=== PATIENT | female | born 1985 | race Caucasian/White ===

== ENCOUNTER 2016-08-22 18:48 | Emergency (ER) | payer OTHER ==
[2016-08-22 18:55] VITALS: BP 126/86; PULSE 86; RESP 20; TEMP 98.1
--- NOTE | 2016-08-22 19:37 | ED ---
ENT HPI - General Chief complaint: Dental/Oral Stated complaint: Dental/Jaw Pain Time Seen by Provider: 08/22/16 19:21 Source: patient, RN notes reviewed Mode of arrival: ambulatory Limitations: no limitations - History of Present Illness Initial comments: Patient is a 31-year-old female presents to the emergency room for evaluation of dental pain. Patient states that she had her tooth pulled on Sunday. Patient states that she began having worsening pain over the past few days. Patient states she has been taking ibuprofen with no relief of symptoms. Patient states the pain radiates from the tooth through her upper jaw. Patient denies swelling. Patient denies fevers or chills. Patient states she had the tooth removed because she had dental abscess. Patient states she was never placed on antibiotics. Patient denies any other complaints at this time. Patient denies throat pain or neck pain. Patient denies headache or dizziness. - Related Data Home Medications Medication Instructions Recorded Confirmed Ibuprofen [Motrin] 800 mg PO Q6HR PRN 08/22/16 08/22/16 Phenyleph/Pramoxin/Glycr/W.pet 1 applic RECTAL DAILY PRN 08/22/16 08/22/16 [Preparation H Cream] Previous Rx's Medication Instructions Recorded Penicillin V Potassium [Pen Vee K] 500 mg PO QID #28 tab 08/22/16 traMADol HCl [Ultram] 50 mg PO Q4H PRN #15 tab 08/22/16 Allergies Allergy/AdvReac Type Severity Reaction Status Date / Time kiwi Allergy Rash/Hives Verified 08/22/16 19:27 levofloxacin [From Levaquin] Allergy HEADACHE Verified 08/22/16 19:27 Opioids - Morphine Analogues Allergy Rash/Hives Verified 08/22/16 19:27 strawberry Allergy Rash/Hives Verified 08/22/16 19:27 watermelon Allergy Rash/Hives Verified 08/22/16 19:27 Review of Systems ROS Statement: Those systems with pertinent positive or pertinent negative responses have been documented in the HPI. ROS Other: All systems not noted in ROS Statement are negative. Past Medical History Past Medical History: No Reported History History of Any Multi-Drug Resistant Organisms: None Reported Past Surgical History: Section Past Psychological History: No Psychological Hx Reported Smoking Status: Current every day smoker Past Alcohol Use History: None Reported Past Drug Use History: Marijuana General Exam - General Exam Comments Initial Comments: Sitting on exam chair, no acute distress. Limitations: no limitations General appearance: alert, in no apparent distress Head exam: Present: atraumatic, normocephalic, normal inspection Eye exam: Present: normal appearance Expanded Teeth exam: Present: other (Dry socket noted where tooth #11 was extracted) Neck exam: Present: normal inspection. Absent: tenderness Extremities exam: Present: normal inspection Back exam: Present: normal inspection Neurological exam: Present: alert, oriented X3, CN II-XII intact, normal gait Psychiatric exam: Present: normal affect, normal mood Skin exam: Present: warm, dry, intact, normal color. Absent: rash Course Vital Signs 08/22/16 18:52 Temperature 98.1 F Pulse Rate 86 Respiratory 20 Rate Blood Pressure 126/86 O2 Sat by Pulse 98 Oximetry Medical Decision Making - Medical Decision Making Patient is a 31-year-old female presents emergency room for evaluation of dental pain. Patient does appear to have dry socket at the area with tooth was extracted. Patient placed on prophylactic antibiotics. Patient states she is ALLERGIC to opioids. Patient states she breaks out in hives rash. Patient states she's never tried Ultram before, Ultram is a synthetic. Patient given Ultram in the emergency room and evaluated. Patient had no reaction to Ultram and will be sent home with this as needed for pain. Advised patient to follow- up with her dentist. Patient states she understands everything that was discussed with her. Return parameters discussed. Case discussed with Dr. Ratliff. Disposition Clinical Impression: Dry tooth socket Disposition: HOME SELF-CARE Condition: Good Instructions: Dry Socket (ED) Additional Instructions: Please follow up with a dentist. If you do not have a dentist, you may contact [facility]. Phone number is [phone] for existing clients. For new clients you may call [phone]. Another option is you have is the [employer] [facility]. Phone number is [phone]. Medications as directed. Saltwater gargles. Cold fluids can sometimes help with pain as well. Return to the Emergency Room for any worsening or changing symptoms. Use cold compresses to the outside of the face. Prescriptions: Penicillin V Potassium [Pen Vee K] 500 mg PO QID #28 tab traMADol HCl [Ultram] 50 mg PO Q4H PRN #15 tab PRN Reason: Pain Referrals: José Miguel Cook MD [Primary Care Provider] - 1-2 days Time of Disposition: 19:35
[2016-08-22] MEDS ORDERED: traMADol 50 MG TAB PO STA (19:38)
== END 2016-08-22 20:06 | disposition home or self-care (01) ==
LOC: EC 18:48
DX: M27.3 Alveolitis of jaws (principal); F17.200 Nicotine dependence, unspecified, uncomplicated; Z88.1 Allergy status to other antibiotic agents; Z88.5 Allergy status to narcotic agent; Z91.018 Allergy to other foods
CPT/HCPCS: 99282

== ENCOUNTER → 2017-01-31 | Outpatient (CLI) | payer OTHER ==
[2017-01-31 09:46] LABS: Basophils # (A) 0.1 k/uL (0-0.2); Basophils % (A) 0 %; CH 28.5; CHCM 30.4; Eosinophils # (A) 0.6 k/uL (0-0.7); Eosinophils % (A) 5 %; HCT 39.7 % (34.0-46.0); HDW 2.82; HGB 12.5 gm/dL (11.4-16.0); Hypochromasia Marked; Luc # (Auto) 0.14; Luc % (Auto) 1; Lymphocytes # (A) 2.2 k/uL (1.0-4.8); Lymphocytes % (A) 16 %; MCH 29.6 pg (25.0-35.0); MCHC 31.5 g/dL (31.0-37.0); MCV 93.9 fL (80.0-100.0); Mean Platelet Volume 7.2; Monocytes # (A) 0.6 k/uL (0-1.0); Monocytes % (A) 5 %; Neutrophils # (A) 9.9 k/uL (1.3-7.7); Neutrophils % (A) 73 %; RBC 4.23 m/uL (3.80-5.40); RDW 14.2 % (11.5-15.5); WBC 13.5 k/uL (3.8-10.6); WBC (Perox) 13.32
--- NOTE | 2017-01-31 13:28 | WWHP ---
[facility] - HISTORY AND PHYSICAL DATE OF SERVICE: 01/31/2017 CHIEF COMPLAINT: The patient is here for her routine gynecologic exam. HPI: This is a 31-year-old, G5, P2-0-3-2 with an LMP of 01/13/17. She is status post tubal ligation. She states her last pelvic exam was in 2014. She states her periods have become more problematic. Over the past 2 years, the periods have gotten closer. They tend to be closer to every 3 weeks. She has had times where she has had 3 periods in one month. The periods tend to last 4 to 7 days and they can have heavy flow. She has had to change her tampon frequently on the heavy days and sometimes soaks through the tampon in 2 hours or so. She is mainly concerned with problems such as cervical cancer since her mother had cervical cancer. PAST MEDICAL HISTORY: Depression and posttraumatic stress disorder. MEDICATIONS: Ibuprofen p.r.n. ALLERGIES: Allergies to OPIATES, which causes skin rash. She also has certain FOOD ALLERGIES. PAST SURGICAL HISTORY: section x2. She did have a tubal ligation with her second . Also a hemorrhoidectomy and fissure correction in the past. PAST OB HISTORY: section x2. She did have gestational diabetes with at least one of her pregnancies. She had 3 spontaneous abortions. 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 She has no other history of STDs. She has had menstrual problems as above. SOCIAL HISTORY: She smokes 1 pack of cigarettes per day and denies alcohol use. She does use marijuana. She denies any other drug use. She was previously in the [employer]. 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 She has been with her boyfriend for 8 years and lives with him. FAMILY HISTORY: Mother had cervical, breast and lung cancer. Her grandfather had skin cancer. Mother also had diabetes. REVIEW OF SYSTEMS: She thinks she has lost about 10 to 20 pounds over the last year and this has been intentional with dieting. She denies respiratory or cardiac problems. GI: She does have some digestive issues when eating dairy products and this can include loose stools. She states this is much better when she avoids dairy products. PHYSICAL EXAM: Blood pressure 113/60, height 5 feet 2 inches, weight 170 pounds. Temperature 96.8, pulse 72. This is a well-developed, well-nourished, white female, who is alert and oriented x3, in no acute distress HEENT is within normal limits. NECK: Supple without mass or thyromegaly. CHEST AND LUNGS: Clear to auscultation. HEART: Regular rate and rhythm. Breasts are without mass or discharge. Axillary exam is negative for adenopathy. BACK: Negative for CVA tenderness. ABDOMEN: Soft, nontender, without palpable masses. PELVIC EXAM: Normal external genitalia. Cervix and vagina revealed a small amount of old menstrual type blood in the cervical os. Upon wiping this away, the cervix appears normal without lesions. There is no cervical motion tenderness. There is no unusual discharge. The uterus is mid position, approximately 8 to 10-week size and is nontender. There are no palpable adnexal masses or tenderness. Rectal exam does reveal some internal hemorrhoids, which are nontender. There are no other rectal masses. EXTREMITIES: Nontender. IMPRESSION: 1. A 31-year-old female who is status post tubal ligation, who is experiencing menometrorrhagia. 2. Uterine enlargement, approximately 8 to 10 week size. PLAN: 1. Pap smear was performed. 2. Self breast examination was discussed. 3. TSH and CBC will be drawn today. 4. The patient will keep a menstrual calendar. 5. Trial of meclofenamate sodium 100 mg t.i.d. p.r.n. for heavy menstrual flow up to 6 days per cycle. 6. Pelvic ultrasound will be scheduled to further evaluate her uterine enlargement. 7. The patient states that the periods being more frequent is not a big problem for her, but she is mostly concerned about issues such as cervical cancer. We have discussed various options for her more frequent bleeding. We have discussed hormonal manipulations such as control pills. We have also has discussed possible surgical options. If she is having significant menstrual problems, she will return with her menstrual calendar for re-evaluation and we can again look at different options. 8. She will also return in one year and p.r.n. MMODL / IJN: [id number] /
== END | disposition home or self-care (01) ==
LOC: WWCWWP 07:51
PROVIDERS: ATTEND Obstetrics & Gynecology
DX: N92.1 Excessive and frequent menstruation with irregular cycle (principal)
CPT/HCPCS: 36415; 84443; 85025

== ENCOUNTER → 2017-05-15 | Outpatient (CLI) | payer OTHER ==
[2017-05-15 16:48] LABS: HCT 38.9 % (34.0-46.0); HGB 11.9 gm/dL (11.4-16.0); Hypochromasia Slight; MCH 28.3 pg (25.0-35.0); MCHC 30.6 g/dL (31.0-37.0); MCV 92.2 fL (80.0-100.0); Mean Platelet Volume 6.9; Platelet Count 482 k/uL (150-450); RBC 4.22 m/uL (3.80-5.40); RDW 14.8 % (11.5-15.5); WBC 14.6 k/uL (3.8-10.6)
[2017-05-15 18:53] LABS: Eosinophils # (M) 0.15 k/uL (0-0.7); Monocytes # (M) 1.02 k/uL (0-1.0); Neutrophils # (M) 11.53 k/uL (1.3-7.7); Neutrophils % (M) 79 %; Nucleated Red Blood Cells 0 /100 WBC (0-0); Polychromasia Present; Total Cells Counted 100
--- NOTE | 2017-05-16 07:14 | US ---
EXAMINATION TYPE: US pelvic complete DATE OF EXAM: 05/15/2017 COMPARISON: NONE CLINICAL HISTORY: N92.1 Excessive/frequent menstruation w/irregular. felt enlarged uterus on pelvi c exam TECHNIQUE: Transabdominal (TA) Date of LMP: 05/09/2017 EXAM MEASUREMENTS: Uterus: 11.7 x 7.5 x 9.2 cm Endometrial Stripe: not identified cm Right Ovary: 3.4 x 2.2 x 2.3 cm Left Ovary: 2.8 x 2.6 x 2.6 cm 1. Uterus: Anteverted enlarged and bulky, at least one large fibroid seen measuring 6.2 x 4.7 x 5. 9 cm fundally. 2. Endometrium: not identified 3. Right Ovary: wnl 4. Left Ovary: wn. 5. Bilateral Adnexa: wnl 6. Posterior cul-de-sac: no free fluid Heterogeneous enlarged uterus is confirmed as suspected on exam. There is at least one large slightly hypoechoic ill-defined fibroid measuring 6.2 x 4.7 x 6.0 cm in the fundus. Endometrial stripe is not seen with certainty. No free fluid is seen in pelvic cul-de-sac. Both ovaries are identified. No suspicious extraovarian adnexal masses are seen. IMPRESSION: Heterogeneous bulky fibroid uterus. Pelvic MRI can be performed to further characterize u nderlying fibroids if desired.
== END | disposition home or self-care (01) ==
LOC: RADUSWWP 16:06
PROVIDERS: ATTEND Obstetrics & Gynecology
DX: D25.9 Leiomyoma of uterus, unspecified (principal); N92.1 Excessive and frequent menstruation with irregular cycle; D50.9 Iron deficiency anemia, unspecified
CPT/HCPCS: 76856; 85025

== ENCOUNTER → 2017-10-16 | Outpatient (CLI) | payer OTHER ==
[2017-10-16 10:22] LABS: Anisocytosis Slight; Basophils % (A) 1 %; Eosinophils # (A) 0.4 k/uL (0-0.7); Eosinophils % (A) 4 %; HCT 36.1 % (34.0-46.0); HGB 11.2 gm/dL (11.4-16.0); Hypochromasia Moderate; Lymphocytes # (A) 1.4 k/uL (1.0-4.8); Lymphocytes % (A) 16 %; MCH 27.7 pg (25.0-35.0); MCHC 31.1 g/dL (31.0-37.0); MCV 89.2 fL (80.0-100.0); Mean Platelet Volume 7.2; Monocytes # (A) 0.4 k/uL (0-1.0); Monocytes % (A) 5 %; Neutrophils # (A) 6.3 k/uL (1.3-7.7); Neutrophils % (A) 73 %; Platelet Count 507 k/uL (150-450); RBC 4.05 m/uL (3.80-5.40); RDW 16.5 % (11.5-15.5); WBC 8.6 k/uL (3.8-10.6)
[2017-10-16 10:31] LABS: Anion Gap 9 mmol/L; Blood Urea Nitrogen 9 mg/dL (7-17); Calcium 9.7 mg/dL (8.4-10.2); Carbon Dioxide 26 mmol/L (22-30); Chloride 106 mmol/L (98-107); Glucose 88 mg/dL (74-99); Potassium 4.3 mmol/L (3.5-5.1); Sodium 141 mmol/L (137-145)
== END | disposition home or self-care (01) ==
LOC: LABPAT 08:58
PROVIDERS: ATTEND Obstetrics & Gynecology
DX: Z01.812 Encounter for preprocedural laboratory examination (principal)
CPT/HCPCS: 36415; 80048; 85025

== ENCOUNTER 2017-10-18 07:56 | Inpatient (IN) | payer OTHER ==
[2017-10-09 13:23] VITALS: BMI 31.6
--- NOTE | 2017-10-17 16:27 | P.HPOB ---
History of Present Illness H&P Date: 10/17/17 Chief Complaint: Menorrhagia and fibroid uterus Kamilah is a 32-year-old female who has a 6 cm fibroid and a grossly enlarged uterus. She is had heavy vaginal bleeding for a number of months and it causes her daily pain. She also complains of constipation due to pressure sensation over her rectum. She is therefore scheduled for a robotic-assisted laparoscopic hysterectomy possible DEVON possible BSO. Risks/benefits/ alternatives to this procedure were discussed with the patient in detail and included but were not limited to bleeding, infection, damage to bladder or bowel , ureteral injuries, vessel injuries, or nerve damage. Past Medical History Past Medical History: No Reported History Additional Past Medical History / Comment(s): SOB,enlarged uterus,heavy menses with increase pain, hx anemia,gestational diabetes History of Any Multi-Drug Resistant Organisms: None Reported Past Surgical History: Section, Tubal Ligation Additional Past Surgical History / Comment(s): c sect x2,hemorrhoidectomy, fissure repair Past Anesthesia/Blood Transfusion Reactions: Motion Sickness Additional Past Anesthesia/Blood Transfusion Reaction / Comment(s): no hx blood transfusion Smoking Status: Current every day smoker - Past Family History Mother Family Medical History: Cancer Additional Family Medical History / Comment(s): breast,lung,cervical Medications and Allergies Home Medications Medication Instructions Recorded Confirmed Type Naproxen Sodium 660 mg PO BID PRN 10/09/17 10/09/17 History Allergies Allergy/AdvReac Type Severity Reaction Status Date / Time kiwi Allergy Rash/Hives Verified 10/09/17 13:09 levofloxacin [From Levaquin] Allergy HEADACHE Verified 10/09/17 13:09 Opioids - Morphine Analogues Allergy Rash/Hives Verified 10/09/17 13:09 strawberry Allergy Rash/Hives Verified 10/09/17 13:09 watermelon Allergy Rash/Hives Verified 10/09/17 13:09 Exam Osteopathic Statement: *. No significant issues noted on an osteopathic structural exam other than those noted in the History and Physical/Consult. - OBG Physical Exam Breast: both: normal (no masses) Abdomen: bowel sounds normal, no diffuse tenderness, no bruit present, no guarding noted, no hepatomegaly, no splenomegaly, no mass Vulva: both: normal Vagina: normal moisture, no discharge Cervix: no lesion, no discharge Uterus: normal size, enlarged, normal contour, nodular Adnexa: both: normal Anus/Rectum: normal perianal skin, no rectal mass, no hemorrhoids, heme negative
[~2017-10-18 07:56] MED LIST: DEXAMETHASONE SOD PHOSPHATE 10 MG/ML 1 ML VIAL IV ONE; LIDOCAINE 1% 20 ML VIAL (10MG/ML) FOR IV START INTRADERMA PRN; MIDAZOLAM 2 MG/2 ML VIAL IV PRN; SCOPOLAMINE 1.5MG/72HR PATCH TRANSDERM ONE; ceFAZolin IN SWFI 2 GM/20 ML SYRINGE IVP ONE
[2017-10-18] MEDS ORDERED: ONDANSETRON 4 MG/2 ML VIAL IVP ONE (08:38)
[2017-10-18] MEDS: LACTATED RINGERS 1,000 ML IV SCH ×3 (08:38→16:51)
[2017-10-18] MEDS ORDERED: PROPOFOL 10 MG/ML 20 ML VIAL IV ONE (10:21)
[2017-10-18] MEDS ORDERED: ROCURONIUM BROMIDE 10 MG/ML 10 ML VIAL IV ONE (10:21)
[2017-10-18] MEDS ORDERED: GLYCOPYRROLATE 0.2 MG/ML 2 ML VIAL ONE (10:21)
[2017-10-18] MEDS ORDERED: LIDOCAINE 1% INJ 10MG/ML (20 ML MDV) ONE (10:21)
[2017-10-18] MEDS ORDERED: fentaNYL (PF) 50 MCG/ML 2 ML AMP ONE (10:21)
[2017-10-18] MEDS ORDERED: KETOROLAC 30 MG/ML 1 ML VIAL ONE (10:21)
[2017-10-18] MEDS ORDERED: NEOSTIGMINE 1 MG/ML 10 ML VIAL ONE (10:21)
[2017-10-18] MEDS ORDERED: diphenhydrAMINE 50 MG/ML 1 ML VIAL ONE (10:21)
[2017-10-18] MEDS ORDERED: MIDAZOLAM 2 MG/2 ML VIAL ONE (10:21)
[2017-10-18] MEDS ORDERED: SUCCINYLCHOLINE CHLORIDE 100 MG/5 ML SYR IV ONE (10:21)
[2017-10-18] MEDS ORDERED: BUPIVACAINE (PF) 0.5% 30 ML VIAL SQ ONE ×2 (10:53)
[2017-10-18] MEDS ORDERED: SIMETHICONE 80 MG CHEWABLE PO PRN (12:31)
[2017-10-18] MEDS ORDERED: diphenhydrAMINE 50 MG/ML 1 ML VIAL IVP PRN (12:31)
[2017-10-18] MEDS ORDERED: KETOROLAC 30 MG/ML 1 ML VIAL IVP PRN (12:31)
[2017-10-18] MEDS ORDERED: ONDANSETRON 4 MG/2 ML VIAL IVP PRN (12:31)
[2017-10-18] MEDS ORDERED: NALOXONE 0.4 MG/ML 1 ML VIAL IV PRN (12:33)
[2017-10-18] MEDS ORDERED: LACTATED RINGERS 1,000 ML IV ONE (12:37)
[2017-10-18] MEDS: fentaNYL (PF) 50 MCG/ML 2 ML AMP IV PRN ×2 (12:49→12:54)
[2017-10-18] MEDS: MEPERIDINE 50 MG/ML SYRINGE IVP ONE ×2 (13:15→13:38)
--- NOTE | 2017-10-18 13:16 | P.OP ---
Date of Procedure: 10/18/17 Preoperative Diagnosis: Menorrhagia and fibroid uterus Postoperative Diagnosis: Same with adhesions as well as vulvar lesion on the left side Procedure(s) Performed: Failed robotic-assisted laparoscopic hysterectomy conversion to total abdominal hysterectomy with lysis of adhesions and vulvar biopsy Anesthesia: KADE Surgeon: Jaydon Middleton Keyseating Machine Set Up Operator #1: Ruby Fitch Estimated Blood Loss (ml): 75 Pathology: other (Uterus and cervix and vulvar biopsy) Condition: stable Disposition: floor Operative Findings: Grossly enlarged fibrin uterus with adhesions of the omentum to to the abdominal anterior abdominal wall as well as adhesions along the lateral portion of the uterus essentially attachment to the pelvic sidewall precluding any ability for robotic surgery Description of Procedure: Patient was taken to the operating suite where a general anesthetic was found be adequate. She was prepped and draped in the normal sterile fashion and placed in dorsal lithotomy position. Initially a speculum was inserted into the vagina into lip cervix identified and grasped with an Allis clamp and 2 sutures were placed at 3-9/10 clock position. Uterus is then sounded to 9 cm and cup size was measured 2.5 cm initially a Maya minute later was inserted however Maya manipulator cable broke therefore was exchanged for a MetaPack care. The camera was inserted and once that was completed maximal Ascent of the uterus was marked on her abdomen and a Eduardo catheter was placed. Gloves were then changed and attention was turned to the abdominal portion of the procedure. Approximately 5 cm above the umbilicus quarter percent Marcaine was injected and a 5 mm skin incision was made. Through this incision a 5 mm port and sleeve were inserted under direct visualization with an optical trocar and sleeve. Once peritoneal placement was assured gas left fully slick abdomen and patient's placement steep Trendelenburg position. Observations immediately were noted to have large amount of omental adhesions across the anterior abdominal wall. Once this was determined 2 lateral ports were placed through 8 mm da Darius sleeves under direct visualization. Fourth port and sleeve was then inserted between the left lateral and the medial port through a 1 cm incision for the him assistant port. At this point we did bluntly dissected the omental adhesions off of the anterior abdominal wall and it was noted that grossly apparent there was probably some type of hernia with the omentum into the fascial layer. Once this was concluded in the we're able to fully visualized pelvis uterus is noted to extend essentially all the way across the pelvis and there was limited lateral movement. Initially we did docked the robot in place a scissor and the one arm and a [place] grasper in the 2 arm and I did few things to the robot freeing the left ovary from the utero-ovarian ligament however such limited movement of the uterus was able to be obtained that it was not would be safe to move forward with the procedure due to how far lateral the uterus was in the pelvis essentially up against the pelvic sidewall with adhesions across that tissue and rather than risk ureteral injury termination of the robot procedure was done. Robot was undocked and instruments removed 4-0 Vicryl was used to close incision subcuticularly. Once this incision was made patient was flattened and a Pfannenstiel skin incision was made through her old scar. This incision was carried through to underlying layer of the fascia and the fascia was then nicked in the midline. This opening was then extended laterally with Petit scissors and the superior and inferior aspect of this incision were then tented up and bluntly and sharply dissected off the rectus muscles there was a small midline hernia of omentum all the way through the fascia which was believed which was visualized with the lap scope. Once this was accomplished the peritoneum was entered and extended superiorly and inferiorly with good visualization of both bowel bladder. Self-retaining retractor was then inserted and bowel was then packed out of the operative field. Uterus was then elevated and on the right side a on Paula clamp was used to clamp the adnexa and on the left side a towel Clip was placed. Initially on the left side Nate clamp was used to clamp the round ligament tubal complex tissues clamped cut and tied moving inferiorly the uterine tissues adjacent to this were clamped cut and tied once this was accomplished blunt and sharp dissection of the bladder which was adherent through more adhesions to the anterior uterine wall were done to fully develop the bladder flap area once this was accomplished uterine vast suture was clamped and cut and tied bilaterally. Moving inferiorly through the cardinal and uterosacral ligaments in a stepwise fashion tissues clamped cut and tied until entry into the vaginal cuff was done. Once this was accomplished uterus was removed and sent to pathology for evaluation. Course tissues were placed in the vaginal cuff and the cuff was closed in interrupted fashion with 2 figure -of-eight sutures. Once excellent hemostasis was obtained corner stitches were cut and the pelvis was irrigated. Seeing no bleeding, instruments were removed and bowel packing was removed. Peritoneal layer was identified and grasped with hemostats and reapproximated close in the previous hernia off and then once the peritoneum was closed the fascial layer was closed with 0 Vicryl suture in a running fashion. One layer of 3-0 Vicryl was placed in the deep subcuticular tissues to reapproximate the skin and close the space. Skin was then closed with sahil. Sponge, lap, needle counts were all correct 2. Patient was then taken to the recovery room in stable and satisfactory condition.
[2017-10-18] MEDS: HYDROmorphone 1 MG/ML 1 ML SYRINGE IVP ONE ×2 (13:22→13:42)
[2017-10-18] MEDS ORDERED: diphenhydrAMINE 50 MG/ML 1 ML VIAL IVP ONE (13:50)
[2017-10-18] MEDS: HYDROmorphone PCA 5 MG/25 ML SYRINGE IV PRN ×2 (15:11→23:29)
[2017-10-18] MEDS: HEPARIN SODIUM,PORCINE 5,000 UNIT/ML 1 ML VIAL SQ SCH (16:48)
[2017-10-18] MEDS: ceFAZolin 1,000 MG in DEXTROSE/WATER 1 50ML.BAG IVPB SCH ×2 (16:49→23:14)
[2017-10-18] MEDS ORDERED: SENNOSIDES-DOCUSATE SODIUM 1 EACH TAB PO SCH (21:00)
[2017-10-19] MEDS: HEPARIN SODIUM,PORCINE 5,000 UNIT/ML 1 ML VIAL SQ SCH (01:15)
[2017-10-19 03:49] VITALS: BP 126/90; PULSE 63; RESP 14; TEMP 98.5
[2017-10-19 07:23] LABS: Anisocytosis Slight; Basophils % (A) 0 %; Eosinophils % (A) 0 %; HCT 33.7 % (34.0-46.0); HGB 10.5 gm/dL (11.4-16.0); Hypochromasia Marked; Lymphocytes # (A) 2.5 k/uL (1.0-4.8); Lymphocytes % (A) 17 %; MCH 27.7 pg (25.0-35.0); MCHC 31.1 g/dL (31.0-37.0); Mean Platelet Volume 7.4; Monocytes # (A) 0.9 k/uL (0-1.0); Monocytes % (A) 6 %; Neutrophils # (A) 11.3 k/uL (1.3-7.7); Neutrophils % (A) 75 %; Platelet Count 538 k/uL (150-450); RBC 3.79 m/uL (3.80-5.40); RDW 16.4 % (11.5-15.5)
[2017-10-19] MEDS: HYDROmorphone PCA 5 MG/25 ML SYRINGE IV PRN ×2 (07:59→14:18)
[2017-10-19] MEDS ORDERED: IBUPROFEN 600 MG TAB PO PRN (08:58)
[2017-10-19] MEDS ORDERED: HYDROmorphone 2 MG TAB PO PRN (08:58)
[2017-10-19] MEDS ORDERED: NICOTINE 21MG/24HR PATCH TRANSDERM SCH (09:00)
--- NOTE | 2017-10-19 09:01 | P.PN ---
Subjective Progress Note Date: 10/19/17 Principal diagnosis: Postop day 1 Filiberto is doing very well postop day 1. She is involuting, voiding, and she is tolerating her diet. She voices no complaints and has passed flatus. We will plan to advance diet's morning and switch her over to oral pain medication. Otherwise on physical exam her vital signs are stable and afebrile. Heart regular, lungs clear, extremities without pain. Abdomen soft incisions clean dry and intact. Bowel sounds are noted. Objective - Vital Signs Vital signs: Vital Signs Temp 98.5 F 10/19/17 03:30 Pulse 63 10/19/17 04:00 Resp 14 10/19/17 04:00 BP 126/90 10/19/17 03:30 Pulse Ox 96 10/19/17 08:38 Intake & Output 10/18/17 10/19/17 10/19/17 18:59 06:59 18:59 Intake Total 1700 150 Output Total 500 1450 Balance 1200 -1300 Intake: IV 1700 Intake, IV Titration 50 Amount ceFAZolin 1,000 mg In 50 Dextrose/Water 1 50ml.bag @ 100 mls/hr IVPB Q6H JAMES Rx#:[id number] Oral 100 Output: Urine 350 1450 Uretheral (Eduardo) 1000 Estimated Blood Loss 150 Other: # Voids 1 - Constitutional General appearance: Present: obese - Respiratory Respiratory: bilateral: CTA - Cardiovascular Rhythm: regular - Gastrointestinal General gastrointestinal: Present: normal bowel sounds - Psychiatric Psychiatric: Present: A&O x's 3, appropriate affect - Labs CBC & Chem 7: 10/19/17 07:12 Labs: Abnormal Lab Results - Last 24 Hours (Table) 10/19/17 Range/Units 07:12 WBC 15.0 H (3.8-10.6) k/uL RBC 3.79 L (3.80-5.40) m/uL Hgb 10.5 L (11.4-16.0) gm/dL Hct 33.7 L (34.0-46.0) % RDW 16.4 H (11.5-15.5) % Plt Count 538 H (150-450) k/uL Neutrophils # 11.3 H (1.3-7.7) k/uL
--- NOTE | 2017-10-19 16:29 | P.DS ---
Providers Date of admission: 10/18/17 12:35 Expected date of discharge: 10/19/17 Attending physician: Jaydon Middleton Primary care physician: José Miguel [facility]ven [facility] Course: Kamilah is doing very well postop day 1. She is requesting discharge home. Her vital signs are stable and afebrile. Heart regular, lungs clear, extremities are without pain. Her incisions intact. We'll plan discharged home today at her request she'll follow up with me on Sunday for staple removal. Discharge instructions were thoroughly reviewed and all questions were answered for her prior to her discharge. Prescription for Dilaudid has been provided for the next 3 days. Patient Condition at Discharge: Good Plan - Discharge Summary Discharge Rx Participant: Yes New Discharge Prescriptions: New HYDROmorphone [Dilaudid] 2 mg PO Q4H PRN 3 Days #18 tab PRN Reason: Pain No Action Naproxen Sodium 660 mg PO BID PRN PRN Reason: Pain Discharge Medication List Naproxen Sodium 660 mg PO BID PRN 10/09/17 [History] HYDROmorphone [Dilaudid] 2 mg PO Q4H PRN 3 Days #18 tab 10/19/17 [Rx] Follow up Appointment(s)/Referral(s): Jaydon Middleton DO [Doctor of Osteopathic Medicine] - 3 Days Patient Instructions/Handouts: *Surgery [facility] - Scopalamine Patch Instructions Activity/Diet/Wound Care/Special Instructions: No heavy lifting, limit stairs and driving, and pelvic rest. If any high temperatures, heavy bleeding, or severe pain call my office and she'll follow up with me on Sunday for staple removal Discharge Disposition: HOME SELF-CARE
== END 2017-10-19 18:36 | disposition home or self-care (01) | DRG 743 ==
LOC: OR 07:56 → 4FBP 12:35
PROVIDERS: ADMIT Obstetrics & Gynecology; ATTEND Obstetrics & Gynecology
PROC: 0UTC0ZZ Resection of Cervix, Open Approach (ICD-10-PCS; principal; 2017-10-18 10:00)
PROC: 0UBMXZX Excision of Vulva, External Approach, Diagnostic (ICD-10-PCS; principal; 2017-10-18 10:00)
PROC: 0DNU0ZZ Release Omentum, Open Approach (ICD-10-PCS; principal; 2017-10-18 10:00)
PROC: 0UJD4ZZ Inspection of Uterus and Cervix, Percutaneous Endoscopic Approach (ICD-10-PCS; principal; 2017-10-18 10:00)
PROC: 0UT90ZZ Resection of Uterus, Open Approach (ICD-10-PCS; principal; 2017-10-18 10:00)
PROC: 0UN90ZZ Release Uterus, Open Approach (ICD-10-PCS; principal; 2017-10-18 10:00)
PROC: 8E0W4CZ Robotic Assisted Procedure of Trunk Region, Percutaneous Endoscopic Approach (ICD-10-PCS; principal; 2017-10-18 10:00)
DX: D25.9 Leiomyoma of uterus, unspecified (principal); D49.59 Neoplasm of unspecified behavior of other genitourinary organ; D64.9 Anemia, unspecified; K59.00 Constipation, unspecified; F17.210 Nicotine dependence, cigarettes, uncomplicated; K66.0 Peritoneal adhesions (postprocedural) (postinfection); N92.0 Excessive and frequent menstruation with regular cycle; Z71.6 Tobacco abuse counseling; Z86.32 Personal history of gestational diabetes; Z98.51 Tubal ligation status; Z80.3 Family history of malignant neoplasm of breast; Z80.1 Family history of malignant neoplasm of trachea, bronchus and lung; Z80.49 Family history of malignant neoplasm of other genital organs; Z88.1 Allergy status to other antibiotic agents; Z88.5 Allergy status to narcotic agent; Z91.018 Allergy to other foods
CPT/HCPCS: 81025; 85025; 86850; 86900; 86901; 88305; 88307

== ENCOUNTER 2017-10-22 10:24 | Emergency (ER) | payer OTHER ==
[2017-10-22 10:34] VITALS: BP 153/82; PULSE 91; RESP 18; TEMP 98.4
[2017-10-22] MEDS ORDERED: ONDANSETRON 4 MG/2 ML VIAL IVP STA (10:38)
[2017-10-22] MEDS ORDERED: SODIUM CHLORIDE 0.9% 1,000 ML IV STA (10:38)
--- NOTE | 2017-10-22 10:40 | ED ---
General Adult HPI - General Chief complaint: Abdominal Pain Stated complaint: POST OP CONSTIPATION Time Seen by Provider: 10/22/17 10:25 Source: patient, RN notes reviewed Mode of arrival: EMS Limitations: no limitations - History of Present Illness Initial comments: This is a 32-year-old female who had a hysterectomy on and patient states she has not had a bowel movement since. Patient states because of this she is having quite a bit of rectal pain. Patient states she feels as though there is something there but she is unable to go and she is afraid to push because of the sahil in the front. Patient denies any fever or chills. Patient states she has been very nauseated and on occasion vomited. Patient denies any abdominal pain other than with the sahil are. Patient denies any chest pain difficult breathing shortness of breath. Patient denies any lightheadedness or dizziness. Patient states she has been eating and drinking normally. - Related Data Home Medications Medication Instructions Recorded Confirmed Docusate [Colace] 200 mg PO BID 10/22/17 10/22/17 Na Phos,M-B/Na Phos,Di-Ba [Fleet 133 ml RECTAL ONCE PRN 10/22/17 10/22/17 Adult] Previous Rx's Medication Instructions Recorded HYDROmorphone [Dilaudid] 2 mg PO Q4H PRN 3 Days #18 tab 10/19/17 Ibuprofen [Motrin] 600 mg PO Q6HR PRN #30 tab 10/19/17 Allergies Allergy/AdvReac Type Severity Reaction Status Date / Time kiwi Allergy Rash/Hives Verified 10/22/17 10:45 levofloxacin [From Levaquin] Allergy HEADACHE Verified 10/22/17 10:45 Opioids - Morphine Analogues Allergy Rash/Hives Verified 10/22/17 10:45 strawberry Allergy Rash/Hives Verified 10/22/17 10:45 watermelon Allergy Rash/Hives Verified 10/22/17 10:45 Review of Systems ROS Statement: Those systems with pertinent positive or pertinent negative responses have been documented in the HPI. ROS Other: All systems not noted in ROS Statement are negative. Past Medical History Past Medical History: No Reported History Additional Past Medical History / Comment(s): SOB,enlarged uterus,heavy menses with increase pain, hx anemia,gestational diabetes History of Any Multi-Drug Resistant Organisms: None Reported Past Surgical History: Section, Hysterectomy, Tubal Ligation Additional Past Surgical History / Comment(s): c sect x2,hemorrhoidectomy, fissure repair Past Anesthesia/Blood Transfusion Reactions: Motion Sickness Additional Past Anesthesia/Blood Transfusion Reaction / Comment(s): no hx blood transfusion Past Psychological History: Anxiety, Depression, PTSD Smoking Status: Current every day smoker Past Alcohol Use History: Rare Past Drug Use History: Marijuana - Past Family History Mother Family Medical History: Cancer Additional Family Medical History / Comment(s): breast,lung,cervical General Exam - General Exam Comments Initial Comments: GENERAL: Patient is well-developed and well-nourished. Patient is nontoxic and well- hydrated and is in mild distress. ENT: Neck is soft and supple. No significant lymphadenopathy is noted. Oropharynx is clear. Moist mucous membranes. Neck has full range of motion without eliciting any pain. EYES: The sclera were anicteric and conjunctiva were pink and moist. Extraocular movements were intact and pupils were equal round and reactive to light. Eyelids were unremarkable. PULMONARY: Unlabored respirations. Good breath sounds bilaterally. No audible rales rhonchi or wheezing was noted. CARDIOVASCULAR: There is a regular rate and rhythm without any murmurs gallops or rubs. Femoral pulses are equal bilaterally ABDOMEN: Soft abdomen nondistended only tender along the staple line. SKIN: Skin is clear with no lesions or rashes and otherwise unremarkable. NEUROLOGIC: Patient is alert and oriented x3. Cranial nerves II through XII are grossly intact. Motor and sensory are also intact. Normal speech, volume and content. Symmetrical smile. MUSCULOSKELETAL: Normal extremities with adequate strength and full range of motion. No lower extremity swelling or edema. No calf tenderness. LYMPHATICS: No significant lymphadenopathy is noted PSYCHIATRIC: Normal psychiatric evaluation. Normal interpersonal interactions appears functionally intact in deals appropriately with others. No signs of depression. No signs of anxiety. Limitations: no limitations Course Vital Signs 10/22/17 10:27 Temperature 98.4 F Pulse Rate 91 Respiratory 18 Rate Blood Pressure 153/82 O2 Sat by Pulse 98 Oximetry Medical Decision Making - Medical Decision Making Patient's x-ray shows some constipation. Patient had an enema had a decent amount of stool and felt better. I spoke with Dr. Fitch she wanted the patient come over to the office immediately to get her sahil removed and the incision checked. I went back to talk to the patient about what Dr. Persaud said she got upset and walked out wasn't able to get any instructions and walked out with IV into the nurse stopped in the hallway to take out her IV. - Lab Data Result diagrams: 10/22/17 11:00 10/22/17 11:00 Lab Results 10/22/17 10/22/17 10/22/17 Range/Units 11:00 11:00 11:35 WBC 12.5 H (3.8-10.6) k/uL RBC 3.86 (3.80-5.40) m/uL Hgb 10.7 L (11.4-16.0) gm/dL Hct 34.3 (34.0-46.0) % MCV 88.8 (80.0-100.0) fL MCH 27.7 (25.0-35.0) pg MCHC 31.2 (31.0-37.0) g/dL RDW 16.8 H (11.5-15.5) % Plt Count 517 H (150-450) k/uL Neutrophils % 80 % Lymphocytes % 10 % Monocytes % 5 % Eosinophils % 3 % Basophils % 0 % Neutrophils # 10.0 H (1.3-7.7) k/uL Lymphocytes # 1.3 (1.0-4.8) k/uL Monocytes # 0.7 (0-1.0) k/uL Eosinophils # 0.4 (0-0.7) k/uL Basophils # 0.0 (0-0.2) k/uL Hypochromasia Slight Anisocytosis Slight Sodium 141 (137-145) mmol/L Potassium 4.4 (3.5-5.1) mmol/L Chloride 104 (98-107) mmol/L Carbon Dioxide 24 (22-30) mmol/L Anion Gap 13 mmol/L BUN 9 (7-17) mg/dL Creatinine 0.50 L (0.52-1.04) mg/dL Est GFR (CKD-EPI)AfAm >90 (>60 ml/min/1.73 sqM) Est GFR (CKD-EPI)NonAf >90 (>60 ml/min/1.73 sqM) Glucose 109 H (74-99) mg/dL Calcium 9.6 (8.4-10.2) mg/dL Total Bilirubin 0.5 (0.2-1.3) mg/dL AST 26 (14-36) U/L ALT 32 (9-52) U/L Alkaline Phosphatase 63 (38-126) U/L Total Protein 6.6 (6.3-8.2) g/dL Albumin 3.9 (3.5-5.0) g/dL Amylase 36 (30-110) U/L Lipase 76 (23-300) U/L Urine Color Yellow Urine Appearance Cloudy H (Clear) Urine pH 7.5 (5.0-8.0) Ur Specific Arnold 1.007 (1.001-1.035) Urine Protein Negative (Negative) Urine Glucose (UA) Negative (Negative) Urine Ketones Trace H (Negative) Urine Blood Negative (Negative) Urine Nitrite Positive H (Negative) Urine Bilirubin Negative (Negative) Urine Urobilinogen <2.0 (<2.0) mg/dL Ur Leukocyte Esterase Small H (Negative) Urine WBC 8 H (0-5) /hpf Ur Squamous Epith Cells 6 H (0-4) /hpf Urine Bacteria Occasional H (None) /hpf Urine Mucus Rare H (None) /hpf Disposition Clinical Impression: Constipation Disposition: Left Against Medical Advice Condition: Good Instructions: Constipation (ED), High Fiber Diet (ED) Additional Instructions: Patient should follow-up with her [facility] immediately from the emergency department Is patient prescribed a controlled substance at d/c from ED?: No Time of Disposition: 13:07
[2017-10-22 11:15] LABS: Anisocytosis Slight; Basophils % (A) 0 %; Eosinophils # (A) 0.4 k/uL (0-0.7); Eosinophils % (A) 3 %; HCT 34.3 % (34.0-46.0); HGB 10.7 gm/dL (11.4-16.0); Hypochromasia Slight; Lymphocytes # (A) 1.3 k/uL (1.0-4.8); Lymphocytes % (A) 10 %; MCH 27.7 pg (25.0-35.0); MCHC 31.2 g/dL (31.0-37.0); MCV 88.8 fL (80.0-100.0); Monocytes # (A) 0.7 k/uL (0-1.0); Monocytes % (A) 5 %; Neutrophils % (A) 80 %; Platelet Count 517 k/uL (150-450); RBC 3.86 m/uL (3.80-5.40); RDW 16.8 % (11.5-15.5); WBC 12.5 k/uL (3.8-10.6)
[2017-10-22 11:24] LABS: ALT 32 U/L (9-52); AST 26 U/L (14-36); Albumin 3.9 g/dL (3.5-5.0); Alkaline Phosphatase 63 U/L (38-126); Amylase 36 U/L (30-110); Anion Gap 13 mmol/L; Blood Urea Nitrogen 9 mg/dL (7-17); Calcium 9.6 mg/dL (8.4-10.2); Carbon Dioxide 24 mmol/L (22-30); Chloride 104 mmol/L (98-107); Glucose 109 mg/dL (74-99); Lipase 76 U/L (23-300); Potassium 4.4 mmol/L (3.5-5.1); Sodium 141 mmol/L (137-145); Total Bilirubin 0.5 mg/dL (0.2-1.3); Total Protein 6.6 g/dL (6.3-8.2)
--- NOTE | 2017-10-22 11:40 | XR ---
EXAMINATION TYPE: XR KUB DATE OF EXAM: 10/22/2017 COMPARISON: NONE HISTORY: Pain TECHNIQUE: One view abdominal series FINDINGS: The osseous structures are intact. The bowel gas pattern is nonspecific. Curvature the spine. Promin ent bowel loops are noted. IMPRESSION: 1. Nonspecific abdomen. There are prominent bowel loops which could been the basis of a partial obst ruction, enteritis or ileus recommend follow-up CT scan.
[2017-10-22 11:46] LABS: Appearance,Urine Cloudy (Clear); Bacteria,Urine Occasional /hpf; Bilirubin,Urine Negative (Negative); Blood,Urine Negative (Negative); Color,Urine Yellow; Glucose,Urine (UA) Negative (Negative); Ketones,Urine Trace (Negative); Leukocyte Esterase,Urine Small (Negative); Mucus,Urine Rare /hpf; Nitrite,Urine Positive (Negative); PH, Urine 7.5 (5.0-8.0); Protein,Urine Negative (Negative); Specific Gravity,Urine 1.007 (1.001-1.035); Squamous Epithelial Cell,Urine 6 /hpf (0-4); Urobilinogen,Urine <2.0 mg/dL (<2.0); WBC,Urine 8 /hpf (0-5)
== END 2017-10-22 13:10 | disposition left against medical advice (07) ==
LOC: EC 10:24
DX: K59.00 Constipation, unspecified (principal); F17.200 Nicotine dependence, unspecified, uncomplicated; Z53.29 Procedure and treatment not carried out because of patient's decision for other reasons; Z90.710 Acquired absence of both cervix and uterus; Z98.51 Tubal ligation status; Z88.1 Allergy status to other antibiotic agents; Z88.5 Allergy status to narcotic agent; Z91.018 Allergy to other foods; Z79.899 Other long term (current) drug therapy
CPT/HCPCS: 99284; 96374; 96361 ×2; 36415; 80053; 82150; 83690; 85025; 81001; 74018; J2405

== ENCOUNTER → 2017-12-13 | Outpatient (CLI) | payer OTHER ==
--- NOTE | 2017-12-13 21:42 | MR ---
EXAMINATION TYPE: MR brain wo/w con DATE OF EXAM: 12/13/2017 COMPARISON: NONE HISTORY: Headaches with history of traumatic brain injury per order. Additional symptoms of dizziness per patient. TECHNIQUE: Multiplanar, multisequence images of the brain and brainstem is performed without and with IV contras t, utilizing 7.5 mL intravenous Gadavist . FINDINGS: Diffusion weighted images demonstrate no evidence of a recent infarct or other diffusion ab normality. There is no extra-axial fluid collection or significant white matter signal abnormality. The ventricular system and cisternal spaces are normal in size and appearance. The brain volume is age appropriate. Midline structures demonstrate normal morphology. The craniocervical junction appears within normal limits. Post contrast images demonstrate no abnormal enhancement. The dural venous sinuses appear pa tent. The visualized sinuses are clear and the globes are intact. No suspicious fluid signal is seen in mastoid air cells bilaterally. IMPRESSION: No suspicious finding is seen to account for patient's symptoms.
== END | disposition home or self-care (01) ==
LOC: RADMRIMAIN 19:35
PROVIDERS: ATTEND Family Medicine
DX: R51 Headache (principal)
CPT/HCPCS: 70553; A9581

== ENCOUNTER → 2018-07-09 | Outpatient (CLI) | payer OTHER ==
[2018-07-09 12:50] VITALS: BP 126/82; PULSE 75; RESP 16; TEMP 98.2; BMI 34.9
--- NOTE | 2018-07-09 16:24 | P.HPOB ---
History of Present Illness H&P Date: 07/09/18 Chief Complaint: The patient is here for her routine gynecologic exam and mammogram. This is a 33-year-old with an LMP of October 2017. She is status post DEVON in 2018 for benign reasons. The patient is requesting STD screening. She states a condom came off in her vagina during sexual activity. She states she had to sexual encounters with this person and she is no longer with him. She underwent a DEVON last year. She has been experiencing some hot flashes, but she had those even prior to the hysterectomy. She is also experiencing urinary frequency and urgency. She denies dysuria at the urinary opening. She has been experiencing some breast pains and wonders if this is an indication that she is menopausal. She is also noticed some acne type lesions on the underside of her breasts. Review of Systems She has gained about 18 pounds over the last one and half years. She denies respiratory or G.I. problems. Cardiac: occasional heart palpitations. 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 History of Any Multi-Drug Resistant Organisms: None Reported Past Surgical History: Section (x2), Hysterectomy, Tubal Ligation Additional Past Surgical History / Comment(s): DEVON on 10/18/17. hemorrhoidectomy, fissure repair. Past Anesthesia/Blood Transfusion Reactions: Motion Sickness Additional Past Anesthesia/Blood Transfusion Reaction / Comment(s): no hx blood transfusion Past Psychological History: Anxiety, Depression, PTSD Smoking Status: Former smoker (Quits March 2018.) Past Alcohol Use History: Rare Additional Past Alcohol Use History / Comment(s): started smoking at age 9,1ppd Past Drug Use History: Marijuana Additional Drug Use History / Comment(s): uses marijuana daily Additional History: She is single. - Past Family History Mother Family Medical History: Cancer, Diabetes Mellitus Additional Family Medical History / Comment(s): breast,lung,cervical CA. Medications and Allergies Home Medications Medication Instructions Recorded Confirmed Type Ibuprofen [Motrin] 600 mg PO Q6HR PRN #30 tab 10/19/17 07/09/18 Rx Biotin 5 mg PO 07/09/18 History Calcium Carbonate/Vitamin D3 1 each PO 07/09/18 History [Calcium 250-D Tablet] diphenhydrAMINE [Benadryl] 25 mg PO HS PRN 07/09/18 07/09/18 History Allergies Allergy/AdvReac Type Severity Reaction Status Date / Time kiwi Allergy Rash/Hives Verified 07/09/18 12:50 levofloxacin [From Levaquin] Allergy HEADACHE Verified 07/09/18 12:50 Opioids - Morphine Analogues Allergy Rash/Hives Verified 07/09/18 12:50 strawberry Allergy Rash/Hives Verified 07/09/18 12:50 watermelon Allergy Rash/Hives Verified 07/09/18 12:50 Exam Vital Signs Temp Pulse Resp BP Pulse Ox 07/09/18 12:42 98.2 F 75 16 126/82 98 Height 5 feet 1 1/2 inches, weight 188 pounds, BMI 34. This is a well-developed well-nourished white female who is alert and oriented times 3 in no acute distress. HEENT: Within normal limits. NECK: Supple without mass or thyromegaly. CHEST AND LUNGS: Clear to auscultation. HEART: Regular rate and rhythm. BREASTS: Are without mass or discharge. There are several acne type pimples on the underside of each breast. Each measures less than 1 cm. There minimally inflamed and there is minimal erythema. AXILLARY EXAM: Negative for adenopathy. BACK: Negative for CVA tenderness. ABDOMEN: Soft, nontender, without palpable masses. PELVIC EXAM: External genitalia appears normal. Vagina appears normal without atrophy. There is no evidence of prolapse. Bimanual examination is negative for mass or tenderness. RECTAL EXAM: Rectal exam is negative for mass or tenderness. EXTREMITIES: Nontender. IMPRESSION: 1. 33-year-old female status post DEVON for benign reasons with normal gynecologic exam. 2. Acne on the underside of the breasts. 3. Urinary frequency and urgency, possible cystitis. 4. The patient is requesting STD screening after a sexual encounter where the condom fell off about 4 to 6 weeks ago. PLAN: 1. Pap smears have been discontinued. 2. Self breast awareness was discussed with the patient. 3. Screening mammogram will be done today. 4. Cleocin 1% solution BID to the acne type lesions on the underside of the breasts. If this does not clear up, I have recommended that she see a pantry worker. The electronic prescription will be sent to write a pharmacy in [place]. 5. GC and Chlamydia and testing from the vagina have been obtained. Blood tests today will include HIV, RPR, hepatitis B surface antigen, and hepatitis C antibody. I have also recommended that she repeat the STD blood tests in 6 months. 6. Urinalysis and culture with sensitivity will be sent from avoided specimen. 7. STD prevention was discussed. We have discussed the importance of limiting sexual partners and to use condoms properly if she is sexually active. 8. She will return in one year.
[2018-07-09 18:54] LABS: Hepatitis C IgG Antibody Non-Reactive (Non-Reactive)
[2018-07-09 19:56] LABS: HIV 1 AB Non-Reactive (Non-Reactive); HIV AB P24 Non-Reactive (Non-Reactive); HIV P24 AG Non-Reactive (Non-Reactive)
[2018-07-09 20:47] LABS: Appearance,Urine Clear (Clear); Bilirubin,Urine Negative (Negative); Blood,Urine Negative (Negative); Color,Urine Colorless; Glucose,Urine (UA) Negative (Negative); Ketones,Urine Negative (Negative); Leukocyte Esterase,Urine Negative (Negative); Nitrite,Urine Negative (Negative); Protein,Urine Negative (Negative); Specific Gravity,Urine 1.002 (1.001-1.035); Urobilinogen,Urine <2.0 mg/dL (<2.0)
--- NOTE | 2018-07-11 08:58 | MM ---
Reason for exam: screening (asymptomatic). Last mammogram was performed 4 years and 4 months ago. History: Patient is postmenopausal. Family history of breast cancer in mother at age 41. Physical Findings: A clinical breast exam by your physician is recommended on an annual basis and results should be correlated with mammographic findings. MG Screening Mammo w CAD Bilateral CC and MLO view(s) were taken. Prior study comparison: March 17, 2014, mammogram. There are scattered fibroglandular densities. No significant changes when compared with prior studies. ASSESSMENT: Benign, BI-RAD 2 RECOMMENDATION: Routine screening mammogram of both breasts at age 38. Manage on a clinical basis with regard to tenderness.
[2018-07-11 15:37] LABS: C. trachomatis,PCR Negative (Neg,Equiv); Chlamydia trachomatis Source Vagina; N. gonorrhoeae,PCR Negative (Neg,Equiv); Neisseria Source Vagina
== END ==
LOC: WWCWWP 12:28
PROVIDERS: ATTEND Obstetrics & Gynecology
DX: Z12.31 Encounter for screening mammogram for malignant neoplasm of breast (principal); Z80.3 Family history of malignant neoplasm of breast; R35.0 Frequency of micturition; R39.15 Urgency of urination; Z11.3 Encounter for screening for infections with a predominantly sexual mode of transmission
CPT/HCPCS: 36415; 77067; 81003; 86780; 86803; 87086; 87340; 87390; 87491; 87591

== ENCOUNTER → 2020-12-02 | Outpatient (CLI) | payer OTHER ==
--- NOTE | 2020-12-02 10:10 | CT ---
EXAMINATION TYPE: CT pelvis w con DATE OF EXAM: 12/02/2020 COMPARISON: None HISTORY: Stricture of anal canal CT DLP: 1063 mGycm CONTRAST: CT scan of the pelvis is performed with Oral Contrast and with IV Contrast, patient injected with 100 mL of Isovue 300. FINDINGS: KIDNEYS/BLADDER: No hydronephrosis. No nephrolithiasis. No distinct renal mass. Urinary bladder g rossly unremarkable. BOWEL: Linda noted within the rectal region. There is luminal narrowing at 5.4 mm. The remainder of the visualized gastrointestinal tract is unremarkable. GENITAL ORGANS: Left ovarian cyst measuring 4 cm in cystic lesions of the right ovary measuring up t o 2.2 cm. LYMPH NODES: No greater than 1cm abdominal or pelvic lymph nodes are appreciated. AORTA: No significant abnormality. OSSEOUS STRUCTURES: No significant abnormality is seen. OTHER: No significant additional abnormality is seen. IMPRESSION: 1. Sparkman noted within the rectal region. There is luminal narrowing at 5.4 mm 2. Ovarian cystic lesions can be further characterized with ultrasound.
== END | disposition home or self-care (01) ==
LOC: RADCTMAIN 07:41
PROVIDERS: ATTEND Family Medicine
DX: K62.4 Stenosis of anus and rectum (principal); N83.202 Unspecified ovarian cyst, left side
CPT/HCPCS: 72193; Q9967

== ENCOUNTER 2021-01-06 10:07 | Day surgery (SDC) | payer OTHER ==
[2021-01-04 14:46] VITALS: BMI 35.9
[~2021-01-06 10:07] MED LIST changes: -DEXAMETHASONE SOD PHOSPHATE 10 MG/ML 1 ML VIAL IV ONE; +LACTATED RINGERS 1,000 ML IV SCH; -LIDOCAINE 1% 20 ML VIAL (10MG/ML) FOR IV START INTRADERMA PRN; -MIDAZOLAM 2 MG/2 ML VIAL IV PRN; -SCOPOLAMINE 1.5MG/72HR PATCH TRANSDERM ONE; -ceFAZolin IN SWFI 2 GM/20 ML SYRINGE IVP ONE
[2021-01-06 10:57] VITALS: TEMP 97.8
[2021-01-06] MEDS ORDERED: LACTATED RINGERS 1,000 ML IV ONE (10:57)
[2021-01-06] MEDS ORDERED: PROPOFOL 10 MG/ML 20 ML VIAL IV ONE (12:13)
[2021-01-06] MEDS ORDERED: LIDOCAINE 1% INJ 10MG/ML (20 ML MDV) ONE (12:13)
--- NOTE | 2021-01-06 12:19 | P.GSHP ---
History of Present Illness H&P Date: 01/06/21 Chief Complaint: GI bleed This a 35-year-old female presents today for colonoscopy. She has history of rectal bleeding. Past Medical History Past Medical History: GERD/Reflux, Skin Disorder Additional Past Medical History / Comment(s): "headache issues", thin stools and constipation, psoriasis, History of Any Multi-Drug Resistant Organisms: None Reported Past Surgical History: Section, Hernia Repair, Hysterectomy, Tubal Ligation Additional Past Surgical History / Comment(s): hemorrhoidectomy, rectal fissure repair. Past Anesthesia/Blood Transfusion Reactions: Motion Sickness Additional Past Anesthesia/Blood Transfusion Reaction / Comment(s): . Smoking Status: Current every day smoker - Past Family History Mother Family Medical History: Cancer Additional Family Medical History / Comment(s): breast,lung Medications and Allergies Home Medications Medication Instructions Recorded Confirmed Type Ibuprofen [Motrin] 600 mg PO Q6HR PRN #30 tab 10/19/17 01/04/21 Rx Acetaminophen [Tylenol Extra 500 mg PO DIRECTED PRN 01/04/21 01/04/21 History Strength] Multivitamin [Multivitamins Adult 1 each PO DAILY 01/04/21 01/04/21 History Gummies] Allergies Allergy/AdvReac Type Severity Reaction Status Date / Time levofloxacin [From Levaquin] Allergy Severe HEADACHE, Verified 01/04/21 14:36 stiff muscles kiwi Allergy Rash/Hives Verified 01/04/21 14:36 Opioids - Morphine Analogues Allergy Rash/Hives Verified 01/04/21 14:36 strawberry Allergy Rash/Hives Verified 01/04/21 14:36 watermelon Allergy Rash/Hives Verified 01/04/21 14:36 Surgical - Exam Vital Signs Temp Pulse Resp BP Pulse Ox 97.8 F 78 18 137/78 98 01/06/21 10:55 01/06/21 10:55 01/06/21 10:55 01/06/21 10:55 01/06/21 10:55 - General well developed, well nourished, no distress - Eyes PERRL - ENT normal pinna - Neck no masses - Respiratory normal expansion - Cardiovascular Rhythm: regular - Abdomen Abdomen: soft, non tender Assessment and Plan Assessment: GI bleed. We'll perform colonoscopy.
--- NOTE | 2021-01-06 12:30 | P.OP ---
Date of Procedure: 01/06/21 Preoperative Diagnosis: GI bleed Postoperative Diagnosis: Internal and external hemorrhoids Normal colonoscopy Procedure(s) Performed: Colonoscopy Anesthesia: MAC Surgeon: James Parra Pathology: none sent Condition: stable Disposition: PACU Description of Procedure: Patient placed on the endoscopy table in the lateral position. She received IV sedation. Digital rectal exam performed which revealed internal and external hemorrhoids. Flexible colonoscope was then placed patient anus passed rotator entire colon. The ileocecal valve was visualized. The cecum, ascending and transverse colon appeared normal. The descending and sigmoid colon appeared normal. Scope was brought back the rectum this appeared normal. Scope withdrawn for patient. There is known to any GI bleed. Resume the patient's. Rectal bleeding is due to internal and external hemorrhoids.
[2021-01-06 12:37] VITALS: RESP 16
[2021-01-06 12:54] VITALS: BP 108/75; PULSE 74
== END 2021-01-06 13:02 | disposition home or self-care (01) ==
LOC: ORWHC2ENDO 10:07
PROVIDERS: ATTEND Surgery
DX: K64.8 Other hemorrhoids (principal); K64.4 Residual hemorrhoidal skin tags; K21.9 Gastro-esophageal reflux disease without esophagitis; L40.9 Psoriasis, unspecified; Z88.1 Allergy status to other antibiotic agents; Z88.5 Allergy status to narcotic agent; Z90.710 Acquired absence of both cervix and uterus; Z98.51 Tubal ligation status; Z87.891 Personal history of nicotine dependence
CPT/HCPCS: 45378; J2001; J2704

== ENCOUNTER → 2021-06-23 | Outpatient (CLI) | payer OTHER ==
--- NOTE | 2021-06-23 11:39 | MM ---
Reason for exam: clinical finding. Last mammogram was performed 2 years and 11 months ago. History: Patient is postmenopausal. Family history of breast cancer in mother at age 41. Physical Findings: Nurse did not find any significant physical abnormalities on exam. MG Diagnostic Mammo w CAD [place] Bilateral CC and MLO view(s) were taken. Prior study comparison: July 09, 2018, bilateral MG screening mammo w CAD. March 17, 2014, mammogram. There are scattered fibroglandular densities. There is chronic nodularity bilaterally. No significant new findings when compared with previous films. These results were verbally communicated with the patient and result sheet given to the patient on 06/23/21. ASSESSMENT: Benign, BI-RAD 2 RECOMMENDATION: Routine screening mammogram of both breasts in 1 year. Manage on a clinical basis with regard to breast pain. Consider a trial of reduced caffiene intake.
== END | disposition home or self-care (01) ==
LOC: RADMAMWWP 09:36
PROVIDERS: ATTEND Family Medicine
DX: N64.4 Mastodynia (principal); Z78.0 Asymptomatic menopausal state; Z80.3 Family history of malignant neoplasm of breast
CPT/HCPCS: 77066

== ENCOUNTER 2021-12-01 13:07 | Emergency (ER) | payer OTHER ==
[2021-12-01 13:10] VITALS: BP 119/86; PULSE 82; RESP 16; TEMP 98.2
[2021-12-01] MEDS ORDERED: SODIUM CHLORIDE 0.9% 1,000 ML IV STA (13:44)
[2021-12-01] MEDS ORDERED: diphenhydrAMINE 50 MG/ML 1 ML VIAL IVP STA (13:44)
[2021-12-01] MEDS ORDERED: METOCLOPRAMIDE 5 MG/ML 2 ML VIAL IVP STA (13:44)
[2021-12-01] MEDS ORDERED: FAMOTIDINE 20 MG/2 ML VIAL IV STA (13:45)
--- NOTE | 2021-12-01 13:51 | ED ---
Nausea/Vomiting/Diarrhea HPI - General Chief complaint: Nausea/Vomiting/Diarrhea Stated complaint: N/V/D Time Seen by Provider: 12/01/21 13:27 Source: patient, RN notes reviewed Mode of arrival: ambulatory Limitations: no limitations - History of Present Illness Initial comments: This is a 36-year-old female who presents to the emergency department for nausea and vomiting. Patient states that she was at the [facility] on 11/25 and her symptoms began the next day on 11/26. She has had intermittent nausea and almost constant diarrhea. Denies any vomiting. She took an Imodium yesterday and the diarrhea has since stopped. She continues to feel very nauseous. Denies any associated abdominal pain or vomiting. Also reports a headache and dizziness. Denies any fevers, chills, sore throat, cough, dyspnea, chest pain, palpitations, abdominal pain, vomiting, or back pain. MD complaint: nausea, diarrhea Onset/Timin -: days(s) Associated Abdominal Pain: No - Related Data Home Medications Medication Instructions Recorded Confirmed Acetaminophen [Tylenol Extra 500 mg PO DIRECTED PRN 01/04/21 01/04/21 Strength] Multivitamin [Multivitamins Adult 1 each PO DAILY 01/04/21 01/04/21 Gummies] Previous Rx's Medication Instructions Recorded Ibuprofen [Motrin] 600 mg PO Q6HR PRN #30 tab 10/19/17 Dicyclomine [Bentyl] 10 mg PO TID #20 capsule 12/01/21 Ondansetron Odt [Zofran Odt] 4 mg PO Q8HR PRN #15 tab 12/01/21 Allergies Allergy/AdvReac Type Severity Reaction Status Date / Time levofloxacin [From Levaquin] Allergy Severe HEADACHE, Verified 12/01/21 13:08 stiff muscles kiwi Allergy Rash/Hives Verified 12/01/21 13:08 Opioids - Morphine Analogues Allergy Rash/Hives Verified 12/01/21 13:08 strawberry Allergy Rash/Hives Verified 12/01/21 13:08 watermelon Allergy Rash/Hives Verified 12/01/21 13:08 Review of Systems ROS Statement: Those systems with pertinent positive or pertinent negative responses have been documented in the HPI. ROS Other: All systems not noted in ROS Statement are negative. Past Medical History Past Medical History: GERD/Reflux, Skin Disorder Additional Past Medical History / Comment(s): "headache issues", thin stools and constipation, psoriasis, History of Any Multi-Drug Resistant Organisms: None Reported Past Surgical History: Section, Hernia Repair, Hysterectomy, Tubal Ligation Additional Past Surgical History / Comment(s): hemorrhoidectomy, rectal fissure repair. Past Anesthesia/Blood Transfusion Reactions: Motion Sickness Additional Past Anesthesia/Blood Transfusion Reaction / Comment(s): . Past Psychological History: Anxiety, Depression, PTSD Smoking Status: Current every day smoker - Past Family History Mother Family Medical History: Cancer Additional Family Medical History / Comment(s): breast,lung General Exam Limitations: no limitations General appearance: alert, in no apparent distress Head exam: Present: atraumatic, normocephalic, normal inspection Respiratory exam: Present: normal lung sounds bilaterally. Absent: respiratory distress, wheezes, rales, rhonchi, stridor Cardiovascular Exam: Present: regular rate, normal rhythm, normal heart sounds. Absent: systolic murmur, diastolic murmur, rubs, gallop, clicks GI/Abdominal exam: Present: soft, hyperactive bowel sounds. Absent: distended, tenderness, guarding, rebound, rigid Neurological exam: Present: alert, oriented X3, CN II-XII intact Psychiatric exam: Present: normal affect, normal mood Skin exam: Present: warm, dry, intact, normal color. Absent: rash Course Vital Signs 12/01/21 13:08 Temperature 98.2 F Pulse Rate 82 Respiratory 16 Rate Blood Pressure 119/86 O2 Sat by Pulse 98 Oximetry Medical Decision Making - Medical Decision Making This is a 36-year-old female who presents to the emergency department for nausea and diarrhea. Patient treated with IV fluids, Reglan and Pepcid for the nausea, and Decadron and Benadryl for the headache. She noted significant improvement after symptomatic treatment. Lab work was nonactionable. She was negative for COVID and influenza. Advised patient that this is likely a gastroenteritis and should resolve on its own. She can continue to take Imodium [id number] for diarrhea. Prescription for Zofran and Bentyl provided. Instructed her to remain well-hydrated. Return precautions reviewed in depth, the patient is instructed to return to the emergency department with any new, worsening, or concerning symptoms. Patient verbalized understanding. This case was discussed in detail with the attending ED physician. Presentation, findings, and treatment plan discussed in detail as well. - Lab Data Result diagrams: 12/01/21 13:57 12/01/21 13:57 Lab Results 12/01/21 12/01/21 12/01/21 Range/Units 13:57 13:57 13:57 WBC 10.0 (3.8-10.6) k/uL RBC 4.46 (3.80-5.40) m/uL Hgb 13.8 (11.4-16.0) gm/dL Hct 43.2 (34.0-46.0) % MCV 96.9 (80.0-100.0) fL MCH 31.0 (25.0-35.0) pg MCHC 32.0 (31.0-37.0) g/dL RDW 13.2 (11.5-15.5) % Plt Count 400 (150-450) k/uL MPV 7.3 Neutrophils % 64 % Lymphocytes % 24 % Monocytes % 6 % Eosinophils % 5 % Basophils % 1 % Neutrophils # 6.4 (1.3-7.7) k/uL Lymphocytes # 2.4 (1.0-4.8) k/uL Monocytes # 0.6 (0-1.0) k/uL Eosinophils # 0.5 (0-0.7) k/uL Basophils # 0.1 (0-0.2) k/uL Sodium 135 L (137-145) mmol/L Potassium 3.8 (3.5-5.1) mmol/L Chloride 104 (98-107) mmol/L Carbon Dioxide 24 (22-30) mmol/L Anion Gap 7 mmol/L BUN 11 (7-17) mg/dL Creatinine 0.62 (0.52-1.04) mg/dL Est GFR (CKD-EPI)AfAm >90 (>60 ml/min/1.73 sqM) Est GFR (CKD-EPI)NonAf >90 (>60 ml/min/1.73 sqM) Glucose 110 H (74-99) mg/dL Calcium 9.5 (8.4-10.2) mg/dL Total Bilirubin 0.2 (0.2-1.3) mg/dL AST 22 (14-36) U/L ALT 17 (4-34) U/L Alkaline Phosphatase 72 (38-126) U/L Total Protein 6.8 (6.3-8.2) g/dL Albumin 4.0 (3.5-5.0) g/dL Amylase 44 (30-110) U/L Lipase 66 (23-300) U/L Urine Color Yellow Urine Appearance Cloudy H (Clear) Urine pH 6.0 (5.0-8.0) Ur Specific Wheeler 1.020 (1.001-1.035) Urine Protein Negative (Negative) Urine Glucose (UA) Negative (Negative) Urine Ketones Negative (Negative) Urine Blood Negative (Negative) Urine Nitrite Negative (Negative) Urine Bilirubin Negative (Negative) Urine Urobilinogen <2.0 (<2.0) mg/dL Ur Leukocyte Esterase Negative (Negative) Urine RBC 2 (0-5) /hpf Urine WBC 1 (0-5) /hpf Ur Squamous Epith Cells 7 H (0-4) /hpf Urine Bacteria Occasional H (None) /hpf Urine Mucus Rare H (None) /hpf Coronavirus (PCR) (Not Detectd) Influenza Type A RNA (Not Detectd) Influenza Type B (PCR) (Not Detectd) 12/01/21 12/01/21 Range/Units 13:57 13:57 WBC (3.8-10.6) k/uL RBC (3.80-5.40) m/uL Hgb (11.4-16.0) gm/dL Hct (34.0-46.0) % MCV (80.0-100.0) fL MCH (25.0-35.0) pg MCHC (31.0-37.0) g/dL RDW (11.5-15.5) % Plt Count (150-450) k/uL MPV Neutrophils % % Lymphocytes % % Monocytes % % Eosinophils % % Basophils % % Neutrophils # (1.3-7.7) k/uL Lymphocytes # (1.0-4.8) k/uL Monocytes # (0-1.0) k/uL Eosinophils # (0-0.7) k/uL Basophils # (0-0.2) k/uL Sodium (137-145) mmol/L Potassium (3.5-5.1) mmol/L Chloride (98-107) mmol/L Carbon Dioxide (22-30) mmol/L Anion Gap mmol/L BUN (7-17) mg/dL Creatinine (0.52-1.04) mg/dL Est GFR (CKD-EPI)AfAm (>60 ml/min/1.73 sqM) Est GFR (CKD-EPI)NonAf (>60 ml/min/1.73 sqM) Glucose (74-99) mg/dL Calcium (8.4-10.2) mg/dL Total Bilirubin (0.2-1.3) mg/dL AST (14-36) U/L ALT (4-34) U/L Alkaline Phosphatase (38-126) U/L Total Protein (6.3-8.2) g/dL Albumin (3.5-5.0) g/dL Amylase (30-110) U/L Lipase (23-300) U/L Urine Color Urine Appearance (Clear) Urine pH (5.0-8.0) Ur Specific Wheeler (1.001-1.035) Urine Protein (Negative) Urine Glucose (UA) (Negative) Urine Ketones (Negative) Urine Blood (Negative) Urine Nitrite (Negative) Urine Bilirubin (Negative) Urine Urobilinogen (<2.0) mg/dL Ur Leukocyte Esterase (Negative) Urine RBC (0-5) /hpf Urine WBC (0-5) /hpf Ur Squamous Epith Cells (0-4) /hpf Urine Bacteria (None) /hpf Urine Mucus (None) /hpf Coronavirus (PCR) Not Detected (Not Detectd) Influenza Type A RNA Not Detected (Not Detectd) Influenza Type B (PCR) Not Detected (Not Detectd) Disposition Clinical Impression: Gastroenteritis Disposition: HOME SELF-CARE Instructions (If sedation given, give patient instructions): Gastroenteritis (ED) Additional Instructions: Return to the emergency department with any new, worsening, or concerning symptoms. Continue to remain well-hydrated. Take the Zofran up to every 8 hours as needed for nausea and vomiting. You can continue to take Imodium as needed for diarrhea. The Bentyl can be taken up to 3 times daily for abdominal cramping associated with the diarrhea. Prescriptions: Dicyclomine [Bentyl] 10 mg PO TID #20 capsule Ondansetron Odt [Zofran Odt] 4 mg PO Q8HR PRN #15 tab PRN Reason: Nausea And Vomiting Is patient prescribed a controlled substance at d/c from ED?: No Referrals: Ketty Webb MD [Primary Care Provider] - 1-2 days
[2021-12-01] MEDS ORDERED: DEXAMETHASONE SOD PHOSPHATE 10 MG/ML 1 ML VIAL IVP SCH (14:00)
[2021-12-01 14:06] LABS: Basophils # (A) 0.1 k/uL (0-0.2); Basophils % (A) 1 %; Eosinophils # (A) 0.5 k/uL (0-0.7); Eosinophils % (A) 5 %; HCT 43.2 % (34.0-46.0); HGB 13.8 gm/dL (11.4-16.0); Lymphocytes # (A) 2.4 k/uL (1.0-4.8); Lymphocytes % (A) 24 %; MCV 96.9 fL (80.0-100.0); Mean Platelet Volume 7.3; Monocytes # (A) 0.6 k/uL (0-1.0); Monocytes % (A) 6 %; Neutrophils # (A) 6.4 k/uL (1.3-7.7); Neutrophils % (A) 64 %; Platelet Count 400 k/uL (150-450); RBC 4.46 m/uL (3.80-5.40); RDW 13.2 % (11.5-15.5)
[2021-12-01 14:22] LABS: ALT 17 U/L (4-34); AST 22 U/L (14-36); African American GFR (CKD) >90 (>60 ml/min/1.73 sqM); Alkaline Phosphatase 72 U/L (38-126); Amylase 44 U/L (30-110); Anion Gap 7 mmol/L; Blood Urea Nitrogen 11 mg/dL (7-17); Calcium 9.5 mg/dL (8.4-10.2); Carbon Dioxide 24 mmol/L (22-30); Chloride 104 mmol/L (98-107); Glucose 110 mg/dL (74-99); Lipase 66 U/L (23-300); Non-African American GFR(CKD) >90 (>60 ml/min/1.73 sqM); Potassium 3.8 mmol/L (3.5-5.1); Sodium 135 mmol/L (137-145); Total Bilirubin 0.2 mg/dL (0.2-1.3); Total Protein 6.8 g/dL (6.3-8.2)
[2021-12-01 14:32] LABS: Appearance,Urine Cloudy (Clear); Bacteria,Urine Occasional /hpf; Bilirubin,Urine Negative (Negative); Blood,Urine Negative (Negative); Color,Urine Yellow; Glucose,Urine (UA) Negative (Negative); Ketones,Urine Negative (Negative); Leukocyte Esterase,Urine Negative (Negative); Mucus,Urine Rare /hpf; Nitrite,Urine Negative (Negative); Protein,Urine Negative (Negative); RBC,Urine 2 /hpf (0-5); Squamous Epithelial Cell,Urine 7 /hpf (0-4); Urobilinogen,Urine <2.0 mg/dL (<2.0); WBC,Urine 1 /hpf (0-5)
[2021-12-01] MEDS ORDERED: ONDANSETRON 4 MG ODT STARTER PACK 2 TAB BTL PO STA (14:44)
== END 2021-12-01 16:00 | disposition home or self-care (01) ==
LOC: EC 13:07
DX: K52.9 Noninfective gastroenteritis and colitis, unspecified (principal); F17.200 Nicotine dependence, unspecified, uncomplicated; Z88.1 Allergy status to other antibiotic agents; Z91.018 Allergy to other foods; Z20.822 Contact with and (suspected) exposure to COVID-19; Z88.5 Allergy status to narcotic agent
CPT/HCPCS: 36415; 80053; 82150; 83690; 85025; 81001; 87502; 87635; 99284; 96374; 96375; 96361; J1200; J1100; J2765; S0119

== ENCOUNTER → 2022-11-02 | Outpatient (CLI) | payer MEDICAID, OTHER ==
[2022-11-02 11:24] LABS: BUN/Creat Ratio 15.71 Ratio (12.00-20.00); Chloride 101 mmol/L (96-109); Glucose 77 mg/dL (70-110); Lipase 35 U/L (14-63); Phosphorus 3.6 mg/dL (2.4-5.1); Potassium 4.2 mmol/L (3.5-5.5); Sodium 138 mmol/L (135-145)
[2022-11-02 11:25] LABS: ALT 19 U/L (8-44); AST 16 U/L (13-35); Albumin 4.6 d/dL (3.8-4.9); Alkaline Phosphatase 74 U/L (41-126); Calcium 9.8 mg/dL (8.7-10.3); Carbon Dioxide 26.3 mmol/L (21.6-31.8); Globulin 2.3 d/dL (1.6-3.3); Total Bilirubin <0.2 mg/dL (0.3-1.2); Total Protein 6.9 d/dL (6.2-8.2)
== END | disposition home or self-care (01) ==
LOC: LABWHC1 06:46
PROVIDERS: ATTEND Family Medicine
DX: E83.52 Hypercalcemia (principal); R79.89 Other specified abnormal findings of blood chemistry
CPT/HCPCS: 36415; 80053; 82306; 83690; 83970; 84100

== ENCOUNTER 2022-11-22 07:51 | Emergency (ER) | payer MEDICAID, OTHER ==
[2022-11-22 08:03] VITALS: BP 136/84; PULSE 81; RESP 20; TEMP 98.2
[2022-11-22] MEDS ORDERED: METOCLOPRAMIDE 5 MG/ML 2 ML VIAL IM STA (08:25)
[2022-11-22] MEDS ORDERED: diphenhydrAMINE 50 MG/ML 1 ML VIAL IM STA (08:25)
--- NOTE | 2022-11-22 08:25 | ED ---
General Adult HPI - General Chief complaint: Headache Stated complaint: headache Time Seen by Provider: 11/22/22 08:13 Source: patient, RN notes reviewed Mode of arrival: ambulatory Limitations: no limitations - History of Present Illness Initial comments: Patient is a pleasant 37-year-old female presenting to the emergency department with concerns with headache. Onset of symptoms was 3 or 4 months ago. Symptoms have been worse over the past week. Symptoms are waxing and waning. Discomfort is right parietal region. Discomfort is currently 7/10. Headache was not sudden onset. Patient does have some photophobia and some blurred vision. Patient also has some paresthesias of the left side of her mouth as well as her legs. Patient feels an air sensation on the left leg and a hot sensation on the warm leg. Patient admits to feeling anxious. No weakness. No confusion. No loss of vision. Patient states at times he feels lightheaded. No difficulty with gait. - Related Data Home Medications Medication Instructions Recorded Confirmed Acetaminophen [Tylenol Extra 500 mg PO DIRECTED PRN 01/04/21 01/04/21 Strength] Multivitamin [Multivitamins Adult 1 each PO DAILY 01/04/21 01/04/21 Gummies] Previous Rx's Medication Instructions Recorded Ibuprofen [Motrin] 600 mg PO Q6HR PRN #30 tab 10/19/17 Dicyclomine [Bentyl] 10 mg PO TID #20 capsule 12/01/21 Ondansetron Odt [Zofran Odt] 4 mg PO Q8HR PRN #15 tab 12/01/21 Allergies Allergy/AdvReac Type Severity Reaction Status Date / Time levofloxacin [From Levaquin] Allergy Severe HEADACHE, Verified 12/01/21 13:08 stiff muscles kiwi Allergy Rash/Hives Verified 12/01/21 13:08 Opioids - Morphine Analogues Allergy Rash/Hives Verified 12/01/21 13:08 strawberry Allergy Rash/Hives Verified 12/01/21 13:08 watermelon Allergy Rash/Hives Verified 12/01/21 13:08 Review of Systems ROS Statement: Those systems with pertinent positive or pertinent negative responses have been documented in the HPI. ROS Other: All systems not noted in ROS Statement are negative. Constitutional: Denies: fever Eyes: Reports: as per HPI. 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 Past Anesthesia/Blood Transfusion Reactions: Motion Sickness Additional Past Anesthesia/Blood Transfusion Reaction / Comment(s): . Past Psychological History: Anxiety, Depression, PTSD Smoking Status: Current every day smoker, Vaper Past Alcohol Use History: None Reported Past Drug Use History: Marijuana - Past Family History Mother Family Medical History: Cancer Additional Family Medical History / Comment(s): breast,lung General Exam Limitations: no limitations General appearance: alert, in no apparent distress Head exam: Present: atraumatic, normocephalic Eye exam: Present: normal appearance, PERRL, EOMI Neck exam: Present: normal inspection Respiratory exam: Present: normal lung sounds bilaterally Cardiovascular Exam: Present: regular rate, normal rhythm GI/Abdominal exam: Present: soft. Absent: tenderness Extremities exam: Present: normal inspection Neurological exam: Present: alert, oriented X3, CN II-XII intact. Absent: motor sensory deficit Expanded Cranial nerves: EOM's Intact: Normal, Facial Sensation: Normal Sensory exam: Upper Extremity Light Touch: Normal, Lower Extremity Light Touch: Normal Motor strength exam: RUE: 5, LUE: 5, RLE: 5, LLE: 5 Eye Response: (4) open spontaneously Motor Response: (6) obeys commands Verbal Response: (5) oriented Psychiatric exam: Present: normal affect, normal mood Skin exam: Present: normal color Course Vital Signs 11/22/22 07:56 Temperature 98.2 F Pulse Rate 81 Respiratory 20 Rate Blood Pressure 136/84 O2 Sat by Pulse 99 Oximetry Medical Decision Making - Medical Decision Making Was pt. sent in by a medical professional or institution (Dr., PA, [facility], urgent care, hospital, or long term...) When possible be specific @ -No Did you speak to anyone other than the patient for history (EMS, parent, family, police, friend...)? What history was obtained from this source @ -No Did you review nursing and triage notes (agree or disagree)? Why? @ -I reviewed and agree with nursing and triage notes, except patient does not describe being off balance but lightheaded. Were old charts reviewed (outside hosp., previous admission, EMS record, old EKG, old radiological studies, urgent care reports/EKG's, long term records)? Report findings @ -No old charts were reviewed Differential Diagnosis (chest pain, altered mental status, abdominal pain women, abdominal pain men, vaginal bleeding, weakness, fever, dyspnea, syncope, headache, dizziness, GI bleed, back pain, seizure, CVA, palpatations, mental health, musculoskeletal)? @ -Differential Headache: Migraine, tension, cluster, carbon monoxide, central venous thrombosis, pension karma temporal arteritis, acute closure glaucoma, intercranial hemorrhage, mastoiditis, sinusitis, head injury, this is not meant to be an all-inclusive list. EKG interpreted by me (3pts min.). @ -As above X-rays interpreted by me (1pt min.). @ -None done CT interpreted by me (1pt min.). @ -CT brain does not reveal large mass or hemorrhage U/S interpreted by me (1pt. min.). @ -None done What testing was considered but not performed or refused? (CT, X-rays, U/S, labs)? Why? @ -None What meds were considered but not given or refused? Why? @ -None Did you discuss the management of the patient with other professionals (professionals i.e. KARSON Guerrero, [facility], lab, RT, psych nurse, social security benefits interviewer, metal riveting machine operator, teacher, weapons officer, rn case manager)? Give summary @ -No Was smoking cessation discussed for >3mins.? @ -No Was critical care preformed (if so, how long)? @ -No Were there social determinants of health that impacted care today? How? (Homelessness, low income, unemployed, alcoholism, drug addiction, transportation, low edu. Level, literacy, decrease access to med. care, assisted, rehab)? @ -No Was there de-escalation of care discussed even if they declined (Discuss DNR or withdrawal of care, Hospice)? DNR status @ -No What co-morbidities impacted this encounter? (DM, HTN, Smoking, COPD, CAD, Cancer, CVA, ARF, Chemo, Hep., AIDS, mental health diagnosis, sleep apnea, morbid obesity)? @ -None Was patient admitted / discharged? Hospital course, mention meds given and route, prescriptions, significant lab abnormalities, going to OR and other pertinent info. @ -Patient reevaluated and significantly improved. Patient states symptoms near resolved. Patient is comfortable with discharge home. Patient updated on results and need for follow-up. Undiagnosed new problem with uncertain prognosis? @ -No Drug Therapy requiring intensive monitoring for toxicity (Heparin, Nitro, Insulin, Cardizem)? @ -No Were any procedures done? @ -No Diagnosis/symptom? @ -Cephalgia Acute, or Chronic, or Acute on Chronic? @ -Acute Uncomplicated (without systemic symptoms) or Complicated (systemic symptoms)? @ -default Side effects of treatment? @ -No Exacerbation, Progression, or Severe Exacerbation? @ -No Poses a threat to life or bodily function? How? (Chest pain, USA, MD, pneumonia, PE, COPD, DKA, ARF, appy, cholecystitis, CVA, Diverticulitis, Homicidal, Suicidal, threat to staff... and all critical care pts) @ -No Disposition Clinical Impression: Headache Disposition: HOME SELF-CARE Condition: Stable Instructions (If sedation given, give patient instructions): Acute Headache (ED) Additional Instructions: Please do follow-up with your primary care physician in the next day or 2 for recheck. Discussed with primary care physician possible need to see neurology. Return for increased pain, weakness, off balance, worsening symptoms or other concerns. Is patient prescribed a controlled substance at d/c from ED?: No Referrals: Lenka Virk MD [Primary Care Provider] - 1-2 days Time of Disposition: 09:28
--- NOTE | 2022-11-22 09:07 | CT ---
EXAMINATION TYPE: CT brain wo con DATE OF EXAM: 11/22/2022 COMPARISON: None INDICATION: Headache X 3 months DLP: 1025 mGycm, Automated exposure control for dose reduction was used. CONTRAST: None CT of the brain is performed utilizing 3 mm thick sections through the posterior fossa and 3 mm thick sections through the remaining calvarium. Study is performed within 24 hours of arrival to the hosp ital. No abnormal hyperdensity is present to suggest an acute intracranial hemorrhage. No mass lesion is evident. No acute infarcts are evident. Ventricles and sulci are appropriate for the patient age. Paranasal sinuses and mastoid air cells within the [id number] are clear. IMPRESSIONS: 1. No acute intracranial process. Follow-up MRI can be performed as clinically indicated.
== END 2022-11-22 09:45 | disposition home or self-care (01) ==
LOC: EC 07:51
DX: R51.9 Headache, unspecified (principal); F41.9 Anxiety disorder, unspecified; F32.A Depression, unspecified; F12.90 Cannabis use, unspecified, uncomplicated; F17.290 Nicotine dependence, other tobacco product, uncomplicated; Z79.899 Other long term (current) drug therapy; Z91.018 Allergy to other foods; Z88.1 Allergy status to other antibiotic agents; Z88.5 Allergy status to narcotic agent
CPT/HCPCS: 70450; 99284; 96372 ×2; J1200; J2765

== ENCOUNTER → 2023-01-23 | Outpatient (CLI) | payer MEDICAID ==
[2023-01-23 16:04] VITALS: BP 119/68; PULSE 65; RESP 17; TEMP 98.4
--- NOTE | 2023-01-23 18:20 | P.HPOB ---
History of Present Illness H&P Date: 01/23/23 Chief Complaint: The patient is here for her routine gynecologic exam. This is a 37-year-old 032 with an LMP of 2018. The patient is complaining of vaginal discharge with odor. She states the discharge is whitish and is clear. She thinks she may have bacterial vaginosis. She also had a CT scan of the pelvis in 2020 which showed a left ovarian cyst measuring 4 cm and a right ovarian cyst measuring 2.2 cm. She believes she had a follow-up ultrasound in her PCPs office and was told she had bilateral cysts. She states she has had some left pelvic pains since shortly after her hysterectomy in 2018. She states the pain is tolerable, but is most concerned about possibility of cancer since her mother had breast, lung and cervical cancer. She had a bilateral diagnostic mammogram on 06/23/2021 which was benign. Screening mammogram in 1 year was recommended. Review of Systems She has lost about 34 pounds over the past 3 years with dietary changes. She denies respiratory or cardiac problems. GI: Anxiety related situational con stipation. Past Medical History Past Medical History: COPD, GERD/Reflux, Skin Disorder Additional Past Medical History / Comment(s): psoriasis. 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 History of Any Multi-Drug Resistant Organisms: None Reported Past Surgical History: Section, Hernia Repair, Hysterectomy, Tubal Ligation Additional Past Surgical History / Comment(s): hemorrhoidectomy, rectal fissure repair and artificial sphincter placement. Colonoscopy 2020. DEVON 2017. Past Anesthesia/Blood Transfusion Reactions: Motion Sickness Additional Past Anesthesia/Blood Transfusion Reaction / Comment(s): . Past Psychological History: Anxiety, Depression, PTSD Smoking Status: Former smoker, Vaper Past Alcohol Use History: None Reported Additional Past Alcohol Use History / Comment(s): started smoking at age 9, 1 ppd Past Drug Use History: Marijuana (Does not use every day.) Additional Drug Use History / Comment(s): denies Additional History: She is . 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 - Past Family History Mother Family Medical History: Cancer, Diabetes Mellitus Additional Family Medical History / Comment(s): breast,lung and cervical cancer. Medications and Allergies Home Medications Medication Instructions Recorded Confirmed Type Ibuprofen [Motrin] 600 mg PO Q6HR PRN #30 tab 10/19/17 01/23/23 Rx Acetaminophen [Tylenol Extra 500 mg PO DIRECTED PRN 01/04/21 01/23/23 History Strength] Multivitamin [Multivitamins Adult 1 each PO DAILY 01/04/21 01/23/23 History Gummies] Dicyclomine [Bentyl] 10 mg PO TID #20 capsule 12/01/21 01/23/23 Rx Allergies Allergy/AdvReac Type Severity Reaction Status Date / Time levofloxacin [From Levaquin] Allergy Severe HEADACHE, Verified 01/23/23 15:57 stiff muscles kiwi Allergy Rash/Hives Verified 01/23/23 15:57 Opioids - Morphine Analogues Allergy Rash/Hives Verified 01/23/23 15:57 strawberry Allergy Rash/Hives Verified 01/23/23 15:57 watermelon Allergy Rash/Hives Verified 01/23/23 15:57 Exam Vital Signs Temp Pulse Resp BP Pulse Ox 01/23/23 16:02 98.4 F 65 17 119/68 98 Intake and Output 01/23/23 01/23/23 01/23/23 06:59 14:59 22:59 Other: Weight 69.853 kg Height 5 foot 1 inch, weight 154 pounds, BMI 29.1. This is a well-developed well-nourished white female who is alert and oriented times 3 in no acute distress. HEENT: Within normal limits. NECK: Supple without mass or thyromegaly. CHEST AND LUNGS: Clear to auscultation. HEART: Regular rate and rhythm. BREASTS: Are without mass or discharge. AXILLARY EXAM: Negative for adenopathy. BACK: Negative for CVA tenderness. ABDOMEN: Soft, nontender, without palpable masses. PELVIC EXAM: External genitalia appears normal. Vagina reveals a small amount of thick whitish discharge without odor. There is no evidence of prolapse. Bimanual examination is negative for mass or tenderness. RECTAL EXAM: Rectovaginal exam is negative for mass or tenderness and is negative for occult blood. EXTREMITIES: Nontender. IMPRESSION: 1. 37-year-old female status post DEVON for benign reasons, with complaints of whitish clear vaginal discharge and odor. Mild discharge is noted on exam. Differential diagnosis will include bacterial vaginosis, petra vaginitis, Trichomonas, gonorrhea, chlamydia, and physiologic discharge. 2. History of bilateral ovarian cysts by CT scan done in 2020. Follow-up is uncertain. 3. Mild chronic left pelvic pain since around the time of her hysterectomy in 2018. There are no significant physical findings on exam today. This may or may not be related to the ovarian cysts noted in #2. PLAN: 1. Pap smears have been discontinued 2. Self breast awareness was discussed with the patient. We have also discussed symptoms associated with inflammatory breast cancer. 3. Affirm vaginitis panel was obtained from the vagina. GC and chlamydia testing was also obtained from the vagina. 4. Pelvic ultrasound was recommended to follow up on the ovarian cysts and left pelvic pain. The order slip was given to the patient for this. 5. She was advised to return in one year for her annual well woman exam and as needed.
[2023-01-24 13:36] LABS: N. gonorrhoeae,PCR Negative (Negative)
[2023-01-24 14:08] LABS: C. trachomatis,PCR Negative (Negative)
[2023-01-24 17:55] LABS: Gardnerella Negative (Negative); Trichomonas Negative (Negative)
== END ==
LOC: WWCWWP 15:28
PROVIDERS: ATTEND Obstetrics & Gynecology
DX: Z01.419 Encounter for gynecological examination (general) (routine) without abnormal findings (principal); R10.2 Pelvic and perineal pain; N89.8 Other specified noninflammatory disorders of vagina; J44.9 Chronic obstructive pulmonary disease, unspecified; K21.9 Gastro-esophageal reflux disease without esophagitis; F17.290 Nicotine dependence, other tobacco product, uncomplicated; Z90.710 Acquired absence of both cervix and uterus; Z88.1 Allergy status to other antibiotic agents; Z91.018 Allergy to other foods; Z88.5 Allergy status to narcotic agent
CPT/HCPCS: 87480; 87491; 87510; 87591; 87660

== ENCOUNTER → 2023-01-29 | Outpatient (CLI) | payer MEDICAID ==
--- NOTE | 2023-01-31 12:09 | MR ---
EXAMINATION TYPE: MR cervical spine wo con DATE OF EXAM: 01/29/2023 7:01 AM CLINICAL INDICATION:Female, 37 years old with history of M54.81 occipital neuralgia; PHH, Headaches w / dizziness, blurred vision COMPARISON: None. TECHNIQUE: Multi planar, multi sequence imaging was performed utilizing: T1-weighted, T2-weighted, an d turbo inversion recovery imaging of the cervical spine. IV Contrast: None FINDINGS: Alignment: The cervical vertebral bodies have preserved heights. Alignment is within normal limits gi donna patient positioning. Bones: Bone signal is within normal limits. No abnormal bone marrow edema on inversion recovery seque nces. Cord: Central cord signal extending from C5 to T1 measuring 1 mm The spinal cord is unremarkable with regards to their signal intensity and morphology. Discs: Intervertebral disc signal is maintained. C2-C3: No significant disc pathology. The spinal canal is patent. No neural foraminal stenosis. C3-C4: No significant disc pathology. The spinal canal is patent. No neural foraminal stenosis. C4-C5: No significant disc pathology. The spinal canal is patent. Bilateral facet and uncovertebral joint arthropathy are present with mild bilateral neural foraminal stenosis. C5-C6: No significant disc pathology. The spinal canal is patent. No neural foraminal stenosis. C6-C7: No significant disc pathology. The spinal canal is patent. No neural foraminal stenosis. C7-T1: No significant disc pathology. The spinal canal is patent. No neural foraminal stenosis. Other: None. IMPRESSION: 1. There may be a tiny 1 mm syrinx extending from C5 to T1 vertebrae. 2. No evidence for disc herniation or significant spinal canal or neural foraminal stenosis. 3. Minimal disc degeneration with associated osteoarthritic changes.
== END | disposition home or self-care (01) ==
LOC: RADMRIMAIN 06:10
PROVIDERS: ATTEND Psychiatry & Neurology Neurology
DX: M50.30 Other cervical disc degeneration, unspecified cervical region (principal); M47.812 Spondylosis without myelopathy or radiculopathy, cervical region; M54.81 Occipital neuralgia
CPT/HCPCS: 72141

== ENCOUNTER → 2023-02-15 | Outpatient (CLI) | payer MEDICAID ==
--- NOTE | 2023-02-15 16:43 | US ---
EXAMINATION TYPE: US pelvic complete DATE OF EXAM: 02/15/2023 COMPARISON: CLINICAL INDICATION: Female, 37 years old with history of N83.0 FOLLICULAR CYST OF OVARY, U; Partial hysterectomy. TECHNIQUE: Transabdominal (TA). Transabdominal sonographic images of the pelvis were acquired. Date of LMP: Unknown EXAM MEASUREMENTS: Right Ovary: 3.0 x 2.2 x 1.9 cm Left Ovary: 2.7 x 2.2 x 1.6 cm 1. Uterus: Surgically absent 2. Endometrium: Surgically absent 3. Right Ovary: follicles seen 4. Left Ovary: follicles seen 5. Bilateral Adnexa: wnl 6. Posterior cul-de-sac: no free fluid IMPRESSION: Postoperative changes of hysterectomy. Vaginal cuff is unremarkable. No ovarian or adnexal masses.
--- NOTE | 2023-02-16 21:10 | MM ---
Reason for Exam: Screening (asymptomatic). Last mammogram was performed 1 year(s) and 8 month(s) ago. Patient History: Menarche at age 9. First Full-Term at age 18. Hysterectomy at age 32. Postmenopausal. Patient has history of breast feeding. Mother had breast cancer, age 41. Risk Values: Ena 5 year model risk: 1.1%. NCI Lifetime model risk: 20.0%. Prior Study Comparison: 03/17/2014 Screening Mammogram, Unknown. 07/09/2018 Bilateral Screening Mammogram, [facility]. 06/23/2021 Bilateral Diagnostic Mammogram, [facility]. Tissue Density: There are scattered fibroglandular densities. Findings: Analyzed By CAD. There is chronic nodularity on the left. There is no suspicious group of microcalcifications or new suspicious mass in either breast. Overall Assessment: Benign, BI-RAD 2 Management: Screening Mammogram of both breasts in 1 year. See note below in regards to patient's increased lifetime risk score. Patient should continue monthly self-breast exams. A clinical breast exam by your physician is recommended on an annual basis. This exam should not preclude additional follow-up of suspicious palpable abnormalities. Note on Ena scores and lifetime risk: 1. A Ena score greater than 3% is considered moderate risk. If this is the case, consider specialist referral to assess eligibility for a risk reducing agent. 2. If overall lifetime risk for the development of breast cancer is 20% or higher, the patient may qualify for future screening with alternating mammogram and breast MRI. Electronically signed and approved by: Russel Montoya M.D. Radiologist
--- NOTE | 2023-02-20 15:24 | P.PN ---
Progress Note - Text Progress Note Date: 02/20/23 OUTPATIENT FOLLOW-UP NOTE TEST(S)/RESULTS: Pelvic ultrasound done on 02/15/2023 was unremarkable. Ovaries appeared within normal limits. METHOD OF NOTIFICATION: The patient was notified by phone on 02/20/2023. PATIENT COMMENTS: She is happy to see there are no signs of ovarian cancer. She does have a family history of gynecologic cancers. DIAGNOSIS: Negative pelvic ultrasound. DISCUSSION: PLAN: She was advised to return in one year for her annual well woman exam and as needed.
== END | disposition home or self-care (01) ==
LOC: RADUSWWP 15:07
PROVIDERS: ATTEND Obstetrics & Gynecology
DX: Z12.31 Encounter for screening mammogram for malignant neoplasm of breast (principal); N83.291 Other ovarian cyst, right side; N83.292 Other ovarian cyst, left side; Z78.0 Asymptomatic menopausal state; Z80.3 Family history of malignant neoplasm of breast; Z90.710 Acquired absence of both cervix and uterus
CPT/HCPCS: 76856; 77067

== ENCOUNTER → 2023-02-22 | Outpatient (CLI) | payer MEDICAID ==
[2023-02-22 08:01] VITALS: BP 133/88; PULSE 59; RESP 16; TEMP 99
--- NOTE | 2023-02-22 14:36 | P.PAINPG ---
PQRS Measure Charge Sheet Comment: HISTORY OF PRESENT ILLNESS: 37 yr old female as a referral from Dr Perez presents today w severe and chronic neck and MARIE secondary to occipital neuralgia and cervicogenic MARIE for evaluation. Pt states pain level is provoked at 10/10 in intensity, constant, localized in the upper and mid cervical spine, sharp in character w shooting pain towards the scalp and BL upper shoulders. Pain is provoked by hyperextension. Pain is alleviated by chiropractic treatments weekly x 4 wks in Dec 2022, ice, medications (Ibu), topical, repositioning and rest. Oswestry axial pain score at 20. PMH: OA, COPD, GERD, Psoriasis, MDD/ Anxiety/ PTSD PSH: Section, Hernia Repair, Hysterectomy, Tubal Ligation, Hemor rhoidectomy, Rectal Fissure Repair, Artificial Sphincter Replacement, Colonoscopy (2020), DEVON (2017) SH: +Vape use, Hx of tobacco use starting at age 9, No ETOH abuse, +Cannabis use. 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 No recent weight loss. NEUROLOGICAL: + numbness and tingling along the distal extremities. No seizure disorders or headaches. MUSCULOSKELETAL: + pain PSYCHIATRIC: Denies current depression or suicidal thoughts. Physical Examinations : Constitutional : Cooperative , not in acute distress . Neurologic : Cranial nerve II to XII intact. No focal neurological deficits. Psychiatric : alert & oriented x 3. Matching mood & appropriate affect. Judgment & insight intact. Musculoskeletal : Cervical Spine +BL CESAR TTP Motor strength in the deltoid and biceps: Normal right side. Normal Left side Motor strength biceps and the wrist extensors: Normal right side . Normal left side Motor strength in the triceps muscle: Normal right side. Normal left side Deep tendon reflexes: Normal at the biceps. Normal at Brachioradialis. Normal at triceps Vertebral body tenderness to deep palpation over Cervical facet loading test: positive bilaterally Spurling test: positive bilaterally Neck distraction test: positive bilaterally Lina sign: positive bilaterally Lumbar spine Motor strength lower extremities ,thigh and legs 5/5 Right side , 5/5 Left side Deep tendon reflexes : Normal Knee Jerk. Normal Ankle Jerk Vertebral body tenderness over Foote Test positive Lumbar facet Loading Test: positive Right / positive Left Range of motion of the lumbar spine Flexion 30 degrees, extension 10 degrees Straight Leg Raise test: Left/ Right positive at degree Haylee test: positive right / positive left. Severe tenderness over the Sacroiliac joint on the Right / Left sides Gaenslen test: positive bilaterally Seated flexion test: positive bilaterally. Sacral spine : Severe tenderness over the Sacroiliac joint: right side / left side Range of motion: Flexion of the lumbar spine <60 degrees Range of motion: Extension of the lumbar spine <20 degrees Gaenslen's Test positive Sloan's Test positive Haylee test: positive right side / left side Thigh Thrust Test Sacral Thrust Test Imaging: MRI noncontrast of the cervical spine from 01/29/23 reviewed Assessment/ Plan : Occipital Neuralgia, Cervicogenic MARIE Recommendation of BL CESAR injections. May need a series of injections for optimal pain relief. Risks, benefits of procedure discussed and patient verbalized understanding. Admits to anti- coagulant use or medical history of diabetes. Protocol for discontinuation/ continuation of medications noah procedure dis cussed. Minimal anesthesia provided, if clinically indicated, consisting of Versed and Fentanyl. All questions answered. I have spent greater than 30 minutes on patient care today. Dr Mancuso was elver ilable by phone for the evaluation of this patient. The time was used to review the medical records including relevant urine studies and Prescription history (MAPs), review of the available imaging, evaluation and examination of the patient, coordination of care with the medical staff and if applicable referring physicians, as well as creation of the medical record PQRS Narrative: Smoking Status Former smoker Home Medications: Ambulatory Orders Ibuprofen [Motrin] 600 mg PO Q6HR PRN #30 tab 10/19/17 Acetaminophen [Tylenol Extra Strength] 500 mg PO DIRECTED PRN 01/04/21 Multivitamin [Multivitamins Adult Gummies] 1 each PO DAILY 01/04/21 Dicyclomine [Bentyl] 10 mg PO TID #20 capsule 12/01/21 Controlled Substance Measures - Controlled Substance Measures Is patient prescribed a controlled substance at discharge?: No
== END ==
LOC: PNWHC3 07:23
PROVIDERS: ATTEND Specialist
DX: M54.81 Occipital neuralgia (principal); M54.2 Cervicalgia; G43.909 Migraine, unspecified, not intractable, without status migrainosus; M19.90 Unspecified osteoarthritis, unspecified site; J44.9 Chronic obstructive pulmonary disease, unspecified; K21.9 Gastro-esophageal reflux disease without esophagitis; F32.9 Major depressive disorder, single episode, unspecified; F41.9 Anxiety disorder, unspecified; F43.10 Post-traumatic stress disorder, unspecified; G44.86 Cervicogenic headache; L40.9 Psoriasis, unspecified; F17.290 Nicotine dependence, other tobacco product, uncomplicated; Z88.1 Allergy status to other antibiotic agents; Z91.018 Allergy to other foods; Z88.8 Allergy status to other drugs, medicaments and biological substances
CPT/HCPCS: 99211

== ENCOUNTER 2023-03-15 08:29 | Day surgery (SDC) | payer MEDICAID ==
[2023-03-14 09:16] VITALS: BMI 29.2
[2023-03-15 09:12] VITALS: RESP 16; TEMP 97.6
[2023-03-15] MEDS ORDERED: ROPIVACAINE 5MG/ML 20ML VIAL ONE (09:17)
[2023-03-15] MEDS ORDERED: methylPREDNISolone ACETATE 80 MG/ML 1 ML VIAL ONE (09:17)
--- NOTE | 2023-03-15 09:23 | P.PCN ---
Date of Procedure: 03/15/23 Procedure(s) Performed: Preoperative diagnoses= 1- Greater occipital neuralgia. 2-cervicogenic headache Postoperative diagnoses= 1-greater occipital neuralgia. 2-cervicogenic headache Procedure= Bilateral Greater occipital nerve block Anesthesia= none . Estimated blood loss=minimal. Procedure indication= the patient had a history of severe chronic neck pain ,and headache, diagnosed with occipital neuralgia exam was positive for severe tenderness over the occipital nerve bilaterally, she will be a good candidate occipital nerve block, patient failed conservative management Procedure description= the patient was seen and identified in the preoperative holding area, risks and benefits and alternative of the procedure and possible complications discussed with the patient, and he agreed with the preceding, patient signed the consent, and vital signs were monitored and were stable throughout the procedure, patient was placed in the sitting position or table and the neck area was prepped and draped with a sterile fashion, vital signs were closely monitored during the procedure, 25-gauge needle advanced 1 inch lateral to the occipital protuberance on the right side, at the location of the right occipital nerve , then after negative aspiration for heme and CSF and there was no paresthesia during the injection, 6 ml of Robivacaine 0.5% and 40 mg of Depo-Medrol injected after negative aspiration, the needle removed, and the entire same procedure was repeated for the left Greater occipital nerve. Patient tolerated the procedure well without any complication, The patient returned to supine position after the back was cleaned and a Band- Aid applied, the patient transported to recovery room in stable condition and he was monitored for 30 minutes before he was discharged home and then patient was reexamined before going home and patient was discharged in stable condition and patient will follow up with the pain clinic in a few weeks.
[2023-03-15 09:57] VITALS: BP 116/68; PULSE 70
== END 2023-03-15 09:50 | disposition home or self-care (01) ==
LOC: ORPAIN 08:29
PROVIDERS: ATTEND Specialist
DX: M54.81 Occipital neuralgia (principal); G44.86 Cervicogenic headache; Z88.1 Allergy status to other antibiotic agents; Z91.018 Allergy to other foods
CPT/HCPCS: 64405; 64450; J1040; J2795

== ENCOUNTER → 2023-04-18 | Outpatient (CLI) | payer MEDICAID ==
--- NOTE | 2023-04-18 07:48 | P.PAINPG ---
PQRS Measure Charge Sheet Comment: HISTORY OF PRESENT ILLNESS: A 37 yr old female presents today w severe and chronic neck and MARIE secondary to occipital neuralgia and cervicogenic MARIE for evaluation s/p BL CESAR injections. Pt states she experienced % pain relief x 4 wks s/p procedure. Pt states pain level is provoked at 0/10 in intensity. Pain was provoked by hyperextension. Pain is alleviated by injections, chiropractic treatments weekly x 4 wks in Dec 2022, ice, medications, topical, repositioning and rest. Oswestry axial pain score at 20. Interventional procedures include BL CESAR x1 Medications include Ibu REVIEW OF ORGAN SYSTEMS: CONSTITUTIONAL: No fevers or chills. No recent weight loss. NEUROLOGICAL: + numbness and tingling along the distal extremities. No seizure disorders or headaches. MUSCULOSKELETAL: + pain PSYCHIATRIC: Denies current depression or suicidal thoughts. Physical Examinations : Constitutional : Cooperative , not in acute distress . Neurologic : Cranial nerve II to XII intact. No focal neurological deficits. Psychiatric : alert & oriented x 3. Matching mood & appropriate affect. Judgment & insight intact. Musculoskeletal : Cervical Spine Mild +BL CESAR TTP Motor strength in the deltoid and biceps: Normal right side. Normal Left side Motor strength biceps and the wrist extensors: Normal right side . Normal left side Motor strength in the triceps muscle: Normal right side. Normal left side Deep tendon reflexes: Normal at the biceps. Normal at Brachioradialis. Normal at triceps Vertebral body tenderness to deep palpa tion over Cervical facet loading test: positive bilaterally Spurling test: positive bilaterally Neck distraction test: positive bilaterally Lina sign: positive bilaterally Lumbar spine Motor strength lower extremities ,thigh and legs 5/5 Right side , 5/5 Left side Deep tendon reflexes : Normal Knee Jerk. Normal Ankle Jerk Vertebral body tenderness over Foote Test positive Lumbar facet Loading Test: positive Right / positive Left Range of motion of the lumbar spine Flexion 30 degrees, extension 10 degrees Straight Leg Raise test: Left/ Right positive at degree Haylee test: positive right / positive left. Severe tenderness over the Sacroiliac joint on the Right / Left sides Gaenslen test: positive bilaterally Seated flexion test: positive bilaterally. Sacral spine : Severe tenderness over the Sacroiliac joint: right side / left side Range of motion: Flexion of the lumbar spine <60 degrees Range of motion: Extension of the lumbar spine <20 degrees Gaenslen's Test positive Sloan's Test positive Haylee test: positive right side / left side Thigh Thrust Test Sacral Thrust Test Imaging: MRI noncontrast of the cervical spine from 01/29/23 reviewed Assessment/ Plan : Occipital Neuralgia, Cervicogenic MARIE Will manage residual pain and may RTC on an as needed basis. All questions answered. I have spent greater than 30 minutes on patient care today. Dr Mancuso was available by phone for the evaluation of this patient. The time was used to review the medical records including relevant urine studies and Prescription history (MAPs), review of the available imaging, evaluation and examination of the patient, coordination of care with the medical staff and if applicable referring physicians, as well as creation of the medical record PQRS Narrative: Smoking Status Former smoker Hx Alcohol Use (MH) No Home Medications: Ambulatory Orders Ibuprofen [Motrin] 600 mg PO Q6HR PRN #30 tab 10/19/17 Controlled Substance Measures - Controlled Substance Measures Is patient prescribed a controlled substance at discharge?: No
[2023-04-18 07:56] VITALS: BP 113/75; PULSE 80; RESP 16; TEMP 97.6
== END ==
LOC: PNWHC3 07:20
PROVIDERS: ATTEND Specialist
DX: M54.81 Occipital neuralgia (principal); G44.86 Cervicogenic headache; Z87.891 Personal history of nicotine dependence; Z91.018 Allergy to other foods; Z88.1 Allergy status to other antibiotic agents; Z88.5 Allergy status to narcotic agent
CPT/HCPCS: 99211

== ENCOUNTER 2023-09-11 20:43 | Emergency (ER) | payer MEDICAID ==
--- NOTE | 2023-09-11 20:52 | ED ---
Abdominal Pain HPI - General Stated Complaint: nausea,vomiting,weakness Time Seen by Provider: 09/11/23 20:51 Source: patient, family, RN notes reviewed Mode of arrival: ambulatory Limitations: no limitations - History of Present Illness Initial Comments: 38-year-old female presented to the ER with a chief complaint of abdominal pain. She states this been going on for a week and she has followed up with urgent care who referred her for a CAT scan. She reports today while at work she was extremely nauseous and had to leave. She states she has generalized abdominal pain and feels bloated. She states most of her pain is on the left upper side. She also is endorsing nausea, fevers and chills. States her stools have been "white like beach sand". She has been taking [id number] ibuprofen without relief. Denies urinary complaints, chest pain, shortness of breath, peripheral edema. - Related Data Previous Rx's Medication Instructions Recorded Ibuprofen [Motrin] 600 mg PO Q6HR PRN #30 tab 10/19/17 Allergies Allergy/AdvReac Type Severity Reaction Status Date / Time levofloxacin [From Levaquin] Allergy Severe HEADACHE, Verified 09/11/23 21:15 stiff muscles kiwi Allergy Rash/Hives Verified 09/11/23 21:15 Opioids - Morphine Analogues Allergy Rash/Hives Verified 09/11/23 21:15 strawberry Allergy Rash/Hives Verified 09/11/23 21:15 watermelon Allergy Rash/Hives Verified 09/11/23 21:15 Review of Systems ROS Statement: Those systems with pertinent positive or pertinent negative responses have been documented in the HPI. ROS Other: All systems not noted in ROS Statement are negative. Past Medical History Past Medical History: COPD, GERD/Reflux, Hearing Disorder / Deafness, Skin Disorder Additional Past Medical History / Comment(s): Hx anemia. Tinnitus. Psoriasis. 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 Varicose veins. Migraines, head and neck pain. History of Any Multi-Drug Resistant Organisms: None Reported Past Surgical History: Section, Hernia Repair, Hysterectomy, Tubal Ligation Additional Past Surgical History / Comment(s): Section X2, hemorrhoidectomy, rectal fissure repair and artificial sphincter placement, colonoscopy. Past Anesthesia/Blood Transfusion Reactions: Motion Sickness Additional Past Anesthesia/Blood Transfusion Reaction / Comment(s): Per patient cannot breakdown dopamine or Epinephrine. Past Psychological History: Anxiety, Depression, PTSD Smoking Status: Former smoker, Vaper Past Alcohol Use History: None Reported Additional Past Alcohol Use History / Comment(s): Started smoking at age 9, 1 ppd, quit 07/2020, now vapes and trying to quit. Past Drug Use History: Marijuana Additional Drug Use History / Comment(s): Marijuana use occasionally. Aware no use 24 hrs prior to procedure. - Past Family History Mother Family Medical History: Cancer, Diabetes Mellitus Additional Family Medical History / Comment(s): Breast, lung and cervical cancer. General Exam - General Exam Comments Initial Comments: Visual Physical Exam Vital signs reviewed General: Well-appearing, nontoxic, no acute distress. Head: Normocephalic, atraumatic Eyes: PERRLA, EOMI ENT: Airway patent Chest: Nonlabored breathing Skin: No visual rash, normal skin tone Neuro: Alert and oriented 3 Musculoskeletal: No gross abnormalities General appearance: alert, in no apparent distress Respiratory exam: Present: normal lung sounds bilaterally. Absent: respiratory distress, wheezes, rales, rhonchi, stridor Cardiovascular Exam: Present: regular rate, normal rhythm, normal heart sounds. Absent: systolic murmur, diastolic murmur, rubs, gallop, clicks GI/Abdominal exam: Present: soft, tenderness (LUQ), normal bowel sounds Neurological exam: Present: alert, oriented X3, CN II-XII intact Skin exam: Present: warm, dry, intact, normal color. Absent: rash Course Vital Signs 09/11/23 09/12/23 21:10 00:30 Temperature 98 F Pulse Rate 66 52 L Respiratory 18 16 Rate Blood Pressure 115/80 117/77 O2 Sat by Pulse 100 99 Oximetry Medical Decision Making - Medical Decision Making I performed the quick note portion of this chart. Electronically signed by Mee Rodriguez PA-C Was pt. sent in by a medical professional or institution ([facility], TRACK COACH, urgent care, hospital, or alf...) When possible be specific @ -No Did you speak to anyone other than the patient for history (EMS, parent, family, police, friend...)? What history was obtained from this source @ - aiding in HPI Did you review nursing and triage notes (agree or disagree)? Why? @ -I reviewed and agree with nursing and triage notes Were old charts reviewed (outside hosp., previous admission, EMS record, old EKG, old radiological studies, urgent care reports/EKG's, alf records)? Report findings @ -No old charts were reviewed Differential Diagnosis (chest pain, altered mental status, abdominal pain women, abdominal pain men, vaginal bleeding, weakness, fever, dyspnea, syncope, headache, dizziness, GI bleed, back pain, seizure, CVA, palpatations, mental health, musculoskeletal)? @ -Differential Abdominal Pain Women:Appendicitis, Cholecystitis, diverticulosis, ischemic bowel, pancreatitis, hepatitis, UTI, gastroenteritis, AAA, incarcerated hernia, bowel obstruction, constipation, inflammatory bowel, hepatitis, peptic ulcer disease, splenic infarction, perforated viscus, vulvitis, ovarian torsion, PID, kidney stone, placenta abruption, this is not meant to be an all-inclusive list EKG interpreted by me (3pts min.). @ -None X-rays interpreted by me (1pt min.). @ -None done CT interpreted by me (1pt min.). @ -CT abdomen pelvis negative for acute findings. Bilateral ovarian cysts present. U/S interpreted by me (1pt. min.). @ -None done What testing was considered but not performed or refused? (CT, X-rays, U/S, labs)? Why? @ -None What meds were considered but not given or refused? Why? @ -None Did you discuss the management of the patient with other professionals (professionals i.e. , PA, TRACK COACH, lab, RT, psych nurse, social science research assistant, youth care specialist, teacher, state patrol officer, housing case manager)? Give summary @ -No Was smoking cessation discussed for >3mins.? @ -No Was critical care preformed (if so, how long)? @ -No Were there social determinants of health that impacted care today? How? (Homelessness, low income, unemployed, alcoholism, drug addiction, transportation, low edu. Level, literacy, decrease access to med. care, senior care, rehab)? @ -No Was there de-escalation of care discussed even if they declined (Discuss DNR or withdrawal of care, Hospice)? DNR status @ -No What co-morbidities impacted this encounter? (DM, HTN, Smoking, COPD, CAD, Cancer, CVA, ARF, Chemo, Hep., AIDS, mental health diagnosis, sleep apnea, morbid obesity)? @ -None Was patient admitted / discharged? Hospital course, mention meds given and route, prescriptions, significant lab abnormalities, going to OR and other pertinent info. @ -Discharge. 38-year-old female presented to the ER with chief complaint of abdominal pain. History and physical exam completed. Vitals stable. Patient no signs of acute distress and nontoxic-appearing. Mild abdominal tenderness to left upper quadrant on palpation. Normal bowel sounds. Laboratory studies obtained unremarkable. Urine without signs of infection. Urine hCG negative. CT abdomen pelvis negative for acute process. Symptoms controlled in ER. Upon reevaluation, patient resting comfortably in stretcher. No signs of acute distress. Results discussed with patient, all questions answered. Patient states she has Zofran at home for nausea. I advised follow-up with GI, referral given. Return parameters discussed. Patient discharged stable condition with follow-up to GI/PCP. Patient verbally expressed understanding and agreement with care plan. Case discussed with ED attending, Dr. Vega. Undiagnosed new problem with uncertain prognosis? @ -No Drug Therapy requiring intensive monitoring for toxicity (Heparin, Nitro, Insulin, Cardizem)? @ -No Were any procedures done? @ -No Diagnosis/symptom? @ -Abdominal pain Acute, or Chronic, or Acute on Chronic? @ -Acute Uncomplicated (without systemic symptoms) or Complicated (systemic symptoms)? @ -Uncomplicated Side effects of treatment? @ -No Exacerbation, Progression, or Severe Exacerbation? @ -No Poses a threat to life or bodily function? How? (Chest pain, USA, MA, pneumonia, PE, COPD, DKA, ARF, appy, cholecystitis, CVA, Diverticulitis, Homicidal, Suicidal, threat to staff... and all critical care pts) @ -No - Lab Data Result diagrams: 09/11/23 21:27 09/11/23 21: Lab Results 09/11/23 09/11/23 09/11/23 Range/Units :27 21: 21: WBC 4.8 (3.8-10.6) k/uL RBC 4.27 (3.80-5.40) m/uL Hgb 13.4 (11.4-16.0) gm/dL Hct 41.0 (34.0-46.0) % MCV 95.9 (80.0-100.0) fL MCH 31.3 (25.0-35.0) pg MCHC 32.7 (31.0-37.0) g/dL RDW 12.7 (11.5-15.5) % Plt Count 310 (150-450) k/uL MPV 7.2 Neutrophils % 68 % Lymphocytes % 20 % Monocytes % 7 % Eosinophils % 4 % Basophils % 1 % Neutrophils # 3.3 (1.3-7.7) k/uL Lymphocytes # 0.9 L (1.0-4.8) k/uL Monocytes # 0.3 (0-1.0) k/uL Eosinophils # 0.2 (0-0.7) k/uL Basophils # 0.0 (0-0.2) k/uL Sodium (137-145) mmol/L Potassium (3.5-5.1) mmol/L Chloride (98-107) mmol/L Carbon Dioxide (22-30) mmol/L Anion Gap mmol/L BUN (7-17) mg/dL Creatinine (0.52-1.04) mg/dL Est GFR (CKD-EPI)AfAm (>60 ml/min/1.73 sqM) Est GFR (CKD-EPI)NonAf (>60 ml/min/1.73 sqM) Glucose (74-99) mg/dL Plasma Lactic Acid Rich (0.7-2.0) mmol/L Calcium (8.4-10.2) mg/dL Total Bilirubin (0.2-1.3) mg/dL AST (14-36) U/L ALT (4-34) U/L Alkaline Phosphatase (38-126) U/L Total Protein (6.3-8.2) g/dL Albumin (3.5-5.0) g/dL Amylase (30-110) U/L Lipase (23-300) U/L Urine Color Colorless Urine Appearance Clear (Clear) Urine pH 6.0 (5.0-8.0) Ur Specific [place] 1.007 (1.001-1.035) Urine Protein Negative (Negative) Urine Glucose (UA) Negative (Negative) Urine Ketones Trace H (Negative) Urine Blood Negative (Negative) Urine Nitrite Negative (Negative) Urine Bilirubin Negative (Negative) Urine Urobilinogen <2.0 (<2.0) mg/dL Ur Leukocyte Esterase Negative (Negative) Urine HCG, Qual Not Detected (Not Detectd) 09/11/23 09/11/23 Range/Units 21:27 21:27 WBC (3.8-10.6) k/uL RBC (3.80-5.40) m/uL Hgb (11.4-16.0) gm/dL Hct (34.0-46.0) % MCV (80.0-100.0) fL MCH (25.0-35.0) pg MCHC (31.0-37.0) g/dL RDW (11.5-15.5) % Plt Count (150-450) k/uL MPV Neutrophils % % Lymphocytes % % Monocytes % % Eosinophils % % Basophils % % Neutrophils # (1.3-7.7) k/uL Lymphocytes # (1.0-4.8) k/uL Monocytes # (0-1.0) k/uL Eosinophils # (0-0.7) k/uL Basophils # (0-0.2) k/uL Sodium 136 L (137-145) mmol/L Potassium 4.1 (3.5-5.1) mmol/L Chloride 106 (98-107) mmol/L Carbon Dioxide 23 (22-30) mmol/L Anion Gap 7 mmol/L BUN 7 (7-17) mg/dL Creatinine 0.53 (0.52-1.04) mg/dL Est GFR (CKD-EPI)AfAm >90 (>60 ml/min/1.73 sqM) Est GFR (CKD-EPI)NonAf >90 (>60 ml/min/1.73 sqM) Glucose 95 (74-99) mg/dL Plasma Lactic Acid Rich 0.6 L (0.7-2.0) mmol/L Calcium 9.0 (8.4-10.2) mg/dL Total Bilirubin 0.3 (0.2-1.3) mg/dL AST 27 (14-36) U/L ALT 19 (4-34) U/L Alkaline Phosphatase 42 (38-126) U/L Total Protein 6.1 L (6.3-8.2) g/dL Albumin 3.5 (3.5-5.0) g/dL Amylase 40 (30-110) U/L Lipase 54 (23-300) U/L Urine Color Urine Appearance (Clear) Urine pH (5.0-8.0) Ur Specific [place] (1.001-1.035) Urine Protein (Negative) Urine Glucose (UA) (Negative) Urine Ketones (Negative) Urine Blood (Negative) Urine Nitrite (Negative) Urine Bilirubin (Negative) Urine Urobilinogen (<2.0) mg/dL Ur Leukocyte Esterase (Negative) Urine HCG, Qual (Not Detectd) - Radiology Data Radiology results: report reviewed, image reviewed Disposition Clinical Impression: Abdominal pain Disposition: HOME SELF-CARE Condition: Stable Instructions (If sedation given, give patient instructions): Abdominal Pain (ED) Additional Instructions: Please follow-up with GI. Return to the ER for any new or worsening concerns. Is patient prescribed a controlled substance at d/c from ED?: No Referrals: Lenka Virk MD [Primary Care Provider] - 1-2 days Arabella Wright MD [STAFF PHYSICIAN] - 1-2 days Time of Disposition: 00:20
[2023-09-11 21:20] VITALS: TEMP 98
[2023-09-11 21:59] LABS: Basophils % (A) 1 %; Eosinophils # (A) 0.2 k/uL (0-0.7); Eosinophils % (A) 4 %; HGB 13.4 gm/dL (11.4-16.0); Lymphocytes # (A) 0.9 k/uL (1.0-4.8); Lymphocytes % (A) 20 %; MCH 31.3 pg (25.0-35.0); MCHC 32.7 g/dL (31.0-37.0); MCV 95.9 fL (80.0-100.0); Mean Platelet Volume 7.2; Monocytes # (A) 0.3 k/uL (0-1.0); Monocytes % (A) 7 %; Neutrophils # (A) 3.3 k/uL (1.3-7.7); Neutrophils % (A) 68 %; Platelet Count 310 k/uL (150-450); RBC 4.27 m/uL (3.80-5.40); RDW 12.7 % (11.5-15.5); WBC 4.8 k/uL (3.8-10.6)
[2023-09-11 22:01] LABS: Appearance,Urine Clear (Clear); Bilirubin,Urine Negative (Negative); Blood,Urine Negative (Negative); Color,Urine Colorless; Glucose,Urine (UA) Negative (Negative); Ketones,Urine Trace (Negative); Leukocyte Esterase,Urine Negative (Negative); Nitrite,Urine Negative (Negative); Protein,Urine Negative (Negative); Specific Gravity,Urine 1.007 (1.001-1.035); Urobilinogen,Urine <2.0 mg/dL (<2.0)
[2023-09-11 22:15] LABS: ALT 19 U/L (4-34); African American GFR (CKD) >90 (>60 ml/min/1.73 sqM); Albumin 3.5 g/dL (3.5-5.0); Amylase 40 U/L (30-110); Anion Gap 7 mmol/L; Blood Urea Nitrogen 7 mg/dL (7-17); Carbon Dioxide 23 mmol/L (22-30); Chloride 106 mmol/L (98-107); Glucose 95 mg/dL (74-99); Lipase 54 U/L (23-300); Non-African American GFR(CKD) >90 (>60 ml/min/1.73 sqM); Sodium 136 mmol/L (137-145); Total Bilirubin 0.3 mg/dL (0.2-1.3); Total Protein 6.1 g/dL (6.3-8.2)
[2023-09-11 22:17] LABS: AST 27 U/L (14-36); Alkaline Phosphatase 42 U/L (38-126); Potassium 4.1 mmol/L (3.5-5.1)
[2023-09-11] MEDS: KETOROLAC 15 MG/ML 1 ML VIAL IVP STA (22:52)
[2023-09-11] MEDS: SODIUM CHLORIDE 0.9% 1,000 ML IV STA (22:53)
[2023-09-11] MEDS: ONDANSETRON 4 MG/2 ML VIAL IVP STA (22:53)
--- NOTE | 2023-09-11 23:52 | CT ---
EXAM: CT Abdomen and Pelvis With Intravenous Contrast CLINICAL HISTORY: ITS.REASON CT Reason: abdominal pain TECHNIQUE: Axial computed tomography images of the abdomen and pelvis with intravenous contrast. CTDI is 15.21 mGy and DLP is 775.92 mGy-cm. This CT exam was performed using one or more of the following dose reduction techniques: automated exposure control, adjustment of the mA and/or kV according to patient size, and/or use of iterative reconstruction technique. COMPARISON: No relevant prior studies available. FINDINGS: Lung bases: Unremarkable. No mass. No consolidation. ABDOMEN: Liver: Unremarkable. No mass. Gallbladder and bile ducts: Unremarkable. No calcified stones. No ductal dilation. Pancreas: Unremarkable. No mass. No ductal dilation. Spleen: Unremarkable. No splenomegaly. Adrenals: Unremarkable. No mass. Kidneys and ureters: Unremarkable. No solid mass. No hydronephrosis. Stomach and bowel: Unremarkable. No acute diverticulitis but no bowel obstruction. No free air. PELVIS: Appendix: No findings to suggest acute appendicitis. Bladder: Unremarkable. No mass. Reproductive: Right ovarian cyst measured 2.9 x 2.6 cm and 1.3 x 1.9 cm. Left ovarian cyst measures 4.7 x 2.4 cm. ABDOMEN and PELVIS: Intraperitoneal space: See above. Bones/joints: No acute fracture. No dislocation. Soft tissues: Unremarkable. Vasculature: Unremarkable. No abdominal aortic aneurysm. Lymph nodes: Unremarkable. No enlarged lymph nodes. IMPRESSION: No acute findings in the abdomen or pelvis. Ovarian cysts. The need for pelvic ultrasound should be determined clinical.
[2023-09-12 00:48] VITALS: BP 117/77; PULSE 52; RESP 16
== END 2023-09-12 00:36 | disposition home or self-care (01) ==
LOC: EC 20:43
DX: R10.12 Left upper quadrant pain (principal); F12.90 Cannabis use, unspecified, uncomplicated; F17.290 Nicotine dependence, other tobacco product, uncomplicated; Z91.018 Allergy to other foods; Z88.1 Allergy status to other antibiotic agents; Z88.8 Allergy status to other drugs, medicaments and biological substances; Z88.5 Allergy status to narcotic agent
CPT/HCPCS: 36415; 80053; 82150; 83605; 83690; 85025; 81003; 81025; 74177; 99284; 96374; 96375; 96361; J2405; J1885; Q9967

== ENCOUNTER 2024-01-25 09:51 | Day surgery (SDC) | payer MEDICAID ==
[2024-01-22 09:16] VITALS: BMI 26.2
[2024-01-25] MEDS: IV FLUID CONTINUATION 1,000 ML IV ONE (10:48)
[2024-01-25 11:09] VITALS: RESP 16; TEMP 98.2
[2024-01-25] MEDS ORDERED: PROPOFOL 10 MG/ML 20 ML VIAL IV ONE (12:11)
[2024-01-25] MEDS ORDERED: LIDOCAINE 1% INJ 10MG/ML (20 ML MDV) ONE (12:11)
--- NOTE | 2024-01-25 12:27 | P.PCN ---
Date of Procedure: 01/25/24 Procedure(s) Performed: BRIEF HISTORY: Patient is a 38-year-old pleasant white female scheduled for an elective colonoscopy as a part of evaluation of left lower quadrant abdominal pain for the last several months duration. She has chronic constipation. Denies any rectal bleeding. PROCEDURE PERFORMED: Colonoscopy. PREOPERATIVE DIAGNOSIS: Left lower quadrant abdominal pain. IV sedation per Anesthesia. PROCEDURE: After informed consent was obtained, the patient, was brought into the endoscopy unit. IV sedation was administered by Anesthesia under continuous monitoring. Digital rectal examination was normal. Initially the Olympus CF-160 flexible video colonoscope was then inserted in the rectum, gradually advanced into the cecum without any difficulty. Careful examination was performed as the scope was gradually being withdrawn. Ileocecal valve and the appendiceal orifice were visualized and appeared normal. Prep was excellent. Mucosa of the cecum, ascending colon, transverse colon, descending colon, sigmoid colon, and rectum appeared normal. Retroflexion was performed in the rectum and no lesions were seen. The patient tolerated the procedure well. IMPRESSION: Normal-appearing colon from rectum to cecum with no evidence of colorectal neoplasia. RECOMMENDATIONS: Findings of this examination were discussed with the patient as well as a family. She was advised to be on a high-fiber diet, take MiraLAX on a daily basis and regulate bowel movements. Recommended repeat screening colonoscopy in 10 years..
[2024-01-25 12:33] VITALS: PULSE 65
[2024-01-25 12:52] VITALS: BP 120/68
== END 2024-01-25 13:08 | disposition home or self-care (01) ==
LOC: ORWHC2ENDO 09:51
PROVIDERS: ATTEND Internal Medicine Gastroenterology
DX: R10.32 Left lower quadrant pain (principal); J44.9 Chronic obstructive pulmonary disease, unspecified; E11.9 Type 2 diabetes mellitus without complications; M54.50 Low back pain, unspecified; G40.89 Other seizures; M41.9 Scoliosis, unspecified; F41.9 Anxiety disorder, unspecified; F32.9 Major depressive disorder, single episode, unspecified; K21.9 Gastro-esophageal reflux disease without esophagitis; F17.291 Nicotine dependence, other tobacco product, in remission; Z88.1 Allergy status to other antibiotic agents; Z88.5 Allergy status to narcotic agent; Z79.84 Long term (current) use of oral hypoglycemic drugs; Z79.02 Long term (current) use of antithrombotics/antiplatelets; Z79.899 Other long term (current) drug therapy
CPT/HCPCS: 45378; J2001; J2704